=== PATIENT | male | born 1940 | race Caucasian/White ===

== ENCOUNTER 2017-09-26 09:13 | Emergency (ER) | payer BC, MEDICARE ==
[~2017-09-26] VITALS: Ht 182.9 cm; Wt 99.0 kg
[2017-09-26 09:30] VITALS: Ht 182.9 cm; Wt 99.0 kg
[2017-09-26] MEDS ORDERED: HYDROCODONE/ACETAMIN 5/325MG TAB PO STA (10:05)
[2017-09-26] MEDS ORDERED: ASPI81TA28 PO (10:33)
[2017-09-26] MEDS ORDERED: LISI40TA PO (10:33)
[2017-09-26] MEDS ORDERED: OMEP40CA41 PO (10:33)
[2017-09-26] MEDS ORDERED: CLOP1TAB15 PO (10:33)
[2017-09-26] MEDS ORDERED: METO25TA56 PO (10:33)
[2017-09-26] MEDS ORDERED: SIMV40TA2 PO (10:33)
[2017-09-26 10:48] LABS: BASO % 0.4 %; BASO ABS # 0.03 K/uL (0-0.2); EOS % 3.7 %; EOS ABS # 0.25 K/uL (0-0.5); HEMOGLOBIN 16.1 g/dL (14.0-18.0); IG# 0.01 K/uL (0.00-0.02); LYMPH % 14.1 %; LYMPH ABS # 0.96 K/uL (1.2-3.4); MEAN CELL VOLUME 85.3 fL (80-100); MEAN CORPUSCULAR HEMOGLOBIN 29.9 pg (25-34); MEAN PLATELET VOLUME 10.3 fL (7.4-10.4); MONO % 8.7 %; MONO ABS # 0.59 K/uL (0.11-0.59); NEUT ABS # 4.97 K/uL (1.4-6.5); PLATELET COUNT 178 K/uL (130-400); RED CELL DISTRIBUTION WIDTH SD 43.8 fL (36.4-46.3); WHITE BLOOD COUNT 6.81 K/uL (4.8-10.8)
--- NOTE | 2017-09-26 10:54 | DIAGNOSTIC IMAGING REPORT ---
CT OF THE CERVICAL SPINE CLINICAL HISTORY: Severe neck pain COMPARISON STUDY: No previous studies for comparison. CT DOSE: 500.21 mGycm TECHNIQUE: CT scan of the cervical spine was performed from the skull base to the thoracic inlet. Images are reviewed in the axial, sagittal, and coronal planes. IV contrast was not administered for this examination. A dose lowering technique was utilized adhering to the principles of ALARA. FINDINGS: The visualized portions of the lung apices reveal no evidence of pneumothorax. The prevertebral soft tissues are normal. No fractures or traumatic subluxations are visualized. There are moderate multilevel degenerative changes. 2.9 mm of retrolisthesis of C5 on C6 is felt to be arthritic. There is multilevel foraminal narrowing due to uncinate spurring. If there is clinical concern over the presence of cord pathology, an MRI would be recommended in follow-up IMPRESSION: 1. Moderate multilevel degenerative changes 2. No acute fractures or traumatic subluxations identified Electronically signed by: Travon Lindsey M.D. 09/26/2017 10:52 AM Dictated Date/Time: 09/26/2017 10:50 AM
[2017-09-26 11:04] LABS: CALCIUM 9.1 mg/dl (8.5-10.1); CREATININE 1.13 mg/dl (0.60-1.40); POTASSIUM 4.3 mmol/L (3.5-5.1)
--- NOTE | 2017-09-26 14:09 | DIAGNOSTIC IMAGING REPORT ---
MRI OF THE CERVICAL SPINE WITHOUT IV CONTRAST CLINICAL HISTORY: Left-sided neck pain. Fall one month ago. COMPARISON STUDY: CT scan of the cervical spine dated 09/26/2017. TECHNIQUE: MRI of the cervical spine is performed utilizing various T1 and T2-weighted sequences in the axial and sagittal planes. IV contrast was not administered for this examination. The examination is modestly compromised by motion artifact. FINDINGS: Cervical spine: Vertebral body height is maintained throughout the cervical spine. There is minimal anterolisthesis at C3-C4 and minimal retrolisthesis at C4-C5 and C5-C6. There is straightening of the cervical lordosis with mild reversal centered at C4-C5. The atlantodental articulation appears maintained noting productive degenerative change. Anterior osteophytes are seen throughout. Marrow signal intensity is heterogeneous. There is no MRI evidence of acute fracture. Advanced multilevel degenerative endplate change is noted. There is mild endplate edema seen from C4-C5 through C5-C6. The spinous processes appear intact. No destructive bony lesion is suggested. Intervertebral discs: Advanced degenerative disc desiccation is seen throughout the cervical spine. Loss of height is severe at C4-C5, C5-C6, and C6-C7. Loss of height is moderate at the remaining cervical levels. Spinal cord: The cervical spinal cord is normal in morphology and signal intensity. C2-C3: A posterior disc osteophyte complex effaces the ventral subarachnoid space. Uncovertebral and facet arthropathy cause moderate right and mild left neural foraminal stenosis. C3-C4: A posterior disc osteophyte complex effaces the ventral cord. Uncovertebral and facet arthropathy cause severe bilateral neural foraminal stenosis. C4-C5: A posterior disc osteophyte complex effaces the ventral cord. Uncovertebral and facet arthropathy cause mild to moderate right and severe left neural foraminal stenosis. C5-C6: A posterior disc osteophyte complex effaces the ventral cord. The minimum AP canal diameter measures 7 mm. Uncovertebral and facet arthropathy cause severe left greater than right neural foraminal stenosis. C6-C7: A posterior disc osteophyte complex effaces the ventral subarachnoid space. Uncovertebral and facet arthropathy cause severe right greater than left neural foraminal stenosis. C7-T1: Facet arthropathy causes mild bilateral neural foraminal stenosis. Soft tissues: The prevertebral and paraspinous soft tissues are normal as imaged. There is no convincing MRI evidence of ligamentous injury. Brain parenchyma: The visualized brain parenchyma at the skull base is normal in appearance. IMPRESSION: 1. No acute abnormality is identified involving the cervical spine. 2. The cervical spinal cord is normal in morphology and signal intensity. 3. Advanced degenerative disc disease and cervical spondylosis as above. See discussion for detailed level by level analysis. Dictated: 09/26/2017 1:47 PM Transcribed: 09/26/2017 2:08 PM [email or web address]_Srinivas Electronically signed by: Shreyas Salgado M.D. 09/26/2017 2:18 PM Dictated Date/Time: 09/26/2017 1:47 PM
[2017-09-26] MEDS ORDERED: HYDR-5688 PO (16:04)
[2017-09-26] MEDS ORDERED: PRED20TA PO (16:04)
[2017-09-26 16:13] VITALS: BP 163/102; PULSE 63; TEMP 36.8; O2SAT 96
--- NOTE | 2017-09-26 17:57 | EMERGENCY ROOM VISIT NOTE ---
History Report prepared by Lili: Yue Raymond Under the Supervision of: Dr. Guzman Sanchez M.D. 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 He describes the pain as a 9/10 in severity and it is worse at night and when he moves. He notes he fell forward on his arms one month ago and "tweaked his shoulder." He also reports he was wood splitting one week ago and was "throwing the wood over his shoulder." He also states that he feels discomfort in the muscles in his left calf. The patient notes he has chronic numbness in his left fingers due to a right rotator cuff surgery. Pt denies LOC, headache, fevers, chills, diaphoresis , visual changes, chest pain, breathing difficulties, nausea, vomiting, abdominal pain, back pain, melena, hematochezia, urinary symptoms, numbness, weakness, lymphadenopathy, rash, or other complaints. 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 A total of ten systems were reviewed and were otherwise negative. Family History No pertinent family history Current/Historical Medications Scheduled Aspirin (Aspirin Ec), 81 MG PO DAILY Clopidogrel (Plavix), 75 MG PO DAILY Lisinopril (Zestril), 40 MG PO DAILY Metoprolol Tartrate (Lopressor) (Lopressor), 25 MG PO BID Omeprazole (Prilosec), 40 MG PO DAILY Prednisone (Prednisone), 20 MG PO DAILY Simvastatin (Zocor), 40 MG PO DAILY Scheduled PRN Hydrocodone/Acetaminophen 5MG/325MG ([place] 5MG/325MG), 1-2 TABS PO Q6H PRN for Pain Allergies Coded Allergies: Iodine (Unverified Allergy, Intermediate, HIVES, RASH, 09/26/17) Physical Exam Vital Signs Date Time Temp Pulse Resp B/P (MAP) Pulse Ox O2 Delivery O2 Flow Rate FiO2 09/26/17 16:13 36.8 63 20 163/102 96 09/26/17 15:19 63 20 163/102 96 Room Air 3/5/18 14:07 61 20 167/89 96 Room Air 09/26/17 13:00 79 20 160/80 99 Room Air 09/26/17 12:00 78 20 158/78 99 Room Air 09/26/17 10:49 59 20 148/88 95 Room Air 09/26/17 09:30 36.8 74 18 162/97 96 Physical Exam GENERAL: Awake, alert, uncomfortable-appearing, in no distress HENT: Normocephalic, atraumatic. Oropharynx unremarkable. EYES: Normal conjunctiva. Sclera non-icteric. NECK: Minimal neck tenderness, but ROM is very limited secondary to pain. RESPIRATORY: Clear to auscultation. No wheezes. CARDIAC: Normal rate. Normal rhythm. No murmurs. No rubs. Extremities warm and well perfused. Pulses equal. No JVD. GI: Soft, non-distended. No tenderness to palpation. No rebound or guarding. No masses. RECTAL: Deferred. MUSCULOSKELETAL: Atraumatic. Chest examination reveals no tenderness. The back is symmetrical on inspection without obvious abnormality. There is no CVA tenderness to palpation. No joint edema. LOWER EXTREMITIES: Calves are equal size bilaterally and non-tender. No edema. No discoloration. NEURO: Normal sensorium. No sensory or motor deficits noted, except for subjective numbness in the fourth and fifth digit in the left hand but this is chronic. SKIN: No rash or jaundice noted. Medical Decision & Procedures ER Provider Diagnostic Interpretation: Radiology results as stated below per my review and radiologist interpretation: CT OF THE CERVICAL SPINE CLINICAL HISTORY: Severe neck pain COMPARISON STUDY: No previous studies for comparison. CT DOSE: 500.21 mGycm TECHNIQUE: CT scan of the cervical spine was performed from the skull base to the thoracic inlet. Images are reviewed in the axial, sagittal, and coronal planes. IV contrast was not administered for this examination. A dose lowering technique was utilized adhering to the principles of ALARA. FINDINGS: The visualized portions of the lung apices reveal no evidence of pneumothorax. The prevertebral soft tissues are normal. No fractures or traumatic subluxations are visualized. There are moderate multilevel degenerative changes. 2.9 mm of retrolisthesis of C5 on C6 is felt to be arthritic. There is multilevel foraminal narrowing due to uncinate spurring. If there is clinical concern over the presence of cord pathology, an MRI would be recommended in follow-up IMPRESSION: 1. Moderate multilevel degenerative changes 2. No acute fractures or traumatic subluxations identified Electronically signed by: Travon Lindsey M.D. 09/26/2017 10:52 AM Dictated Date/Time: 09/26/2017 10:50 AM MRI OF THE CERVICAL SPINE WITHOUT IV CONTRAST CLINICAL HISTORY: Left-sided neck pain. Fall one month ago. COMPARISON STUDY: CT scan of the cervical spine dated 09/26/2017. TECHNIQUE: MRI of the cervical spine is performed utilizing various T1 and T2-weighted sequences in the axial and sagittal planes. IV contrast was not administered for this examination. The examination is modestly compromised by motion artifact. FINDINGS: Cervical spine: Vertebral body height is maintained throughout the cervical spine. There is minimal anterolisthesis at C3-C4 and minimal retrolisthesis at C4-C5 and C5-C6. There is straightening of the cervical lordosis with mild reversal centered at C4-C5. The atlantodental articulation appears maintained noting productive degenerative change. Anterior osteophytes are seen throughout. Marrow signal intensity is heterogeneous. There is no MRI evidence of acute fracture. Advanced multilevel degenerative endplate change is noted. There is mild endplate edema seen from C4-C5 through C5-C6. The spinous processes appear intact. No destructive bony lesion is suggested. Intervertebral discs: Advanced degenerative disc desiccation is seen throughout the cervical spine. Loss of height is severe at C4-C5, C5-C6, and C6-C7. Loss of height is moderate at the remaining cervical levels. Spinal cord: The cervical spinal cord is normal in morphology and signal intensity. C2-C3: A posterior disc osteophyte complex effaces the ventral subarachnoid space. Uncovertebral and facet arthropathy cause moderate right and mild left neural foraminal stenosis. C3-C4: A posterior disc osteophyte complex effaces the ventral cord. Uncovertebral and facet arthropathy cause severe bilateral neural foraminal stenosis. C4-C5: A posterior disc osteophyte complex effaces the ventral cord. Uncovertebral and facet arthropathy cause mild to moderate right and severe left neural foraminal stenosis. C5-C6: A posterior disc osteophyte complex effaces the ventral cord. The minimum AP canal diameter measures 7 mm. Uncovertebral and facet arthropathy cause severe left greater than right neural foraminal stenosis. C6-C7: A posterior disc osteophyte complex effaces the ventral subarachnoid space. Uncovertebral and facet arthropathy cause severe right greater than left neural foraminal stenosis. C7-T1: Facet arthropathy causes mild bilateral neural foraminal stenosis. Soft tissues: The prevertebral and paraspinous soft tissues are normal as imaged. There is no convincing MRI evidence of ligamentous injury. Brain parenchyma: The visualized brain parenchyma at the skull base is normal in appearance. IMPRESSION: 1. No acute abnormality is identified involving the cervical spine. 2. The cervical spinal cord is normal in morphology and signal intensity. 3. Advanced degenerative disc disease and cervical spondylosis as above. See discussion for detailed level by level analysis. Dictated: 09/26/2017 1:47 PM Transcribed: 09/26/2017 2:08 PM Lissett Electronically signed by: Shreyas Salgado M.D. 09/26/2017 2:18 PM Dictated Date/Time: 09/26/2017 1:47 PM Laboratory Results 09/26/17 10:35 Red Blood Count 5.39, Mean Corpuscular Volume 85.3, Mean Corpuscular Hemoglobin 29.9, Mean Corpuscular Hemoglobin Concent 35.0, Mean Platelet Volume 10.3, Neutrophils (%) (Auto) 73.0, Lymphocytes (%) (Auto) 14.1, Monocytes (%) (Auto) 8.7, Eosinophils (%) (Auto) 3.7, Basophils (%) (Auto) 0.4, Neutrophils # (Auto) 4.97, Lymphocytes # (Auto) 0.96, Monocytes # (Auto) 0.59, Eosinophils # (Auto) 0.25, Basophils # (Auto) 0.03 09/26/17 10:35 Test 09/26/17 10:35 White Blood Count 6.81 K/uL (4.8-10.8) Red Blood Count 5.39 M/uL (4.7-6.1) Hemoglobin 16.1 g/dL (14.0-18.0) Hematocrit 46.0 % (42-52) Mean Corpuscular Volume 85.3 fL (80-100) Mean Corpuscular Hemoglobin 29.9 pg (25-34) Mean Corpuscular Hemoglobin Concent 35.0 g/dl (32-36) Platelet Count 178 K/uL (130-400) Mean Platelet Volume 10.3 fL (7.4-10.4) Neutrophils (%) (Auto) 73.0 % Lymphocytes (%) (Auto) 14.1 % Monocytes (%) (Auto) 8.7 % Eosinophils (%) (Auto) 3.7 % Basophils (%) (Auto) 0.4 % Neutrophils # (Auto) 4.97 K/uL (1.4-6.5) Lymphocytes # (Auto) 0.96 K/uL (1.2-3.4) Monocytes # (Auto) 0.59 K/uL (0.11-0.59) Eosinophils # (Auto) 0.25 K/uL (0-0.5) Basophils # (Auto) 0.03 K/uL (0-0.2) RDW Standard Deviation 43.8 fL (36.4-46.3) RDW Coefficient of Variation 14.0 % (11.5-14.5) Immature Granulocyte % (Auto) 0.1 % Immature Granulocyte # (Auto) 0.01 K/uL (0.00-0.02) Erythrocyte Sedimentation Rate 17 mm/hr (0-14) Anion Gap 5.0 mmol/L (3-11) Est Creatinine Clear Calc Drug Dose 68.8 ml/min Estimated GFR () 73.3 Estimated GFR (Non- 63.2 BUN/Creatinine Ratio 18.3 (10-20) Calcium Level 9.1 mg/dl (8.5-10.1) C-Reactive Protein 1.53 mg/dl (0-0.29) Medications Administered Medications (Trade) Dose Ordered Sig/Danyelle Route Start Time Stop Time Status Last Admin Dose Admin Acetaminophen/ Hydrocodone Bitart ([place] 5/325 Tab) 1 tab NOW STAT PO 09/26/17 10:05 09/26/17 10:08 DC 09/26/17 10:25 1 TAB Prednisone (PredniSONE TAB) 20 mg NOW STAT PO 09/26/17 15:35 09/26/17 15:36 DC 09/26/17 15:39 20 MG ED Course 0959: The patient was evaluated in room C6. A complete history and physical exam was performed. 1005: Hydrocodone Bitart/Acetaminophen 1 tab PO 1535: Prednisone 20 mg PO 1145 I reevaluated the patient at this time. He appears content. 1513: Dr. Hernandez, a PA for DR. Hobbs, will see the patient in the office. 1610: I reevaluated the patient. Discussed results and discharge instructions: He verbalized understanding and agreement. The patient is ready for discharge. Medical Decision Triage Nursing notes reviewed. The patient's presentation and history were concerning for neck pain. Etiologies such as herniated disc, severe degenerative disc disease, ARTHRITIS, vascular, epidural abscess, osteomyelitis, fracture, aortic disease, metastatic disease, infection, gastrointestinal, as well as others were entertained. The patient was evaluated. He had reproducible pain. Limited range of motion. The patient was doing a lot of physical labor in the days prior to the pain starting. He was given an oral [place] and did feel better with this. This increased his range of motion. He underwent CT imaging and blood work. His blood work was rather unremarkable. CRP was minimally elevated. CT imaging shows significant degenerative changes in the mid cervical spine. Because of his symptoms and the elevated CRP and MRI was performed. This showed significant degenerative changes, disc disease, with some impingement on to the cord and neural foramina. There is no cord signal intensity abnormality. The patient had a normal extremity examination with regards to sensory and motor testing. He has some chronic left hand numbness which started a long time before this neck issue. He was given a dose of prednisone, 20 mg. He will be on prednisone for the next 4 days. I did discuss the risks and benefits. He will also be on as needed [place]. I did place a consult with [place] [facility]. The case was discussed. They will follow-up the patient in the office. He will call them tomorrow. If he has any worsening problems she will be back to the Emergency Room for reevaluation. By the evaluation outlined above other emergent etiologies such as those listed in the differential, as well as others, were deemed relatively unlikely. The patient was educated about the findings as listed above. All questions were answered and the patient was pleased with the treatment. Return instructions were outlined and the patient was discharged in stable condition. The patient was referred to orthopedic spine for follow-up for a recheck of the current condition. Medication Reconcilliation Current Medication List: was personally reviewed by me Blood Pressure Screening Patient's blood pressure: Elevated blood pressure Blood pressure disposition: Referred to PCP Consults Time Called: [phone] Consulting Physician: ARNOL Carlos for DR. Hobbs Returned Call: [phone] They will see the patient in the office. Impression Primary Impression: Neck pain on left side Additional Impression: Degenerative disc disease Scribe Attestation The scribe's documentation has been prepared under my direction and personally reviewed by me in its entirety. I confirm that the note above accurately reflects all work, treatment, procedures, and medical decision making performed by me. Departure Information Dispostion Home / Self-Care Prescriptions Hydrocodone/Acetaminophen 5MG/325MG ([place] 5MG/325MG) Tab 1-2 TABS PO Q6H Y for Pain, #15 TAB Prov: Guzman Sanchez MD 09/26/17 Prednisone (Prednisone) 20 Mg Tab 20 MG PO DAILY for 4 Days, #4 TAB Prov: Guzman Sanchez MD 09/26/17 Referrals Marques Khan D.O. (PCP) Forms HOME CARE DOCUMENTATION FORM, IMPORTANT VISIT INFORMATION, WORK / SCHOOL INSTRUCTIONS Patient Instructions My [facility] Additional Instructions DO NOT drive, drink alcohol, operate machinery, or perform dangerous activities today. You were given medications in the ER that can affect your ability to safely function or operate a vehicle. Prednisone 20mg: Once daily until the prescription is finished. It is best to take this earlier in the day as some patients note occasional difficulty falling asleep when taken in the late evening. Hydrocodone/acetaminophen 5/325mg: Take 1-2 pills every 6 hours as needed for pain. Avoid additional Acetaminophen/Tylenol, alcohol, operating machinery or dangerous equipment, working on ladders or roofs, DRIVING, or situations where being under the influence may be dangerous. It is recommended to use a stool softener such as Colace, 100mg twice daily while taking this medication to avoid constipation. Rest and avoid heavy lifting until your symptoms resolve and then gradually return to full activity. A good rule of thumb is if it hurts your back to perform a certain activity, then it should be avoided until you are healthy again. A heating pad, warm compresses, or a hot shower may help with tight muscles and can be done several times a day as needed. Continue current medications. Return to the ER immediately for any numbness, tingling, severe pain, loss of control of your bowels or bladder, inability to walk, or as needed. Follow up with Dr. Hobbs's office tomorrow. The number is listed below. Problem Qualifiers Additional Impression: Degenerative disc disease Spinal region: unspecified cervical region Qualified Codes: M50.30 - Other cervical disc degeneration, unspecified cervical region
== END 2017-09-26 16:14 | disposition home or self-care (01) ==
LOC: C.EDB 09:15 → C.EDC 16:14
DX: M50.30 Other cervical disc degeneration, unspecified cervical region (principal); R20.0 Anesthesia of skin; Z79.02 Long term (current) use of antithrombotics/antiplatelets; Z79.82 Long term (current) use of aspirin; Z79.899 Other long term (current) drug therapy; Z88.8 Allergy status to other drugs, medicaments and biological substances

== ENCOUNTER 2019-10-02 02:16 | Observation (INO) ==
[2019-10-02] MEDS ORDERED: fentaNYL citrate 100 MCG/2 ML VIAL IV STA (02:35)
[2019-10-02 03:04] LABS: Basophils # (auto) 0.02 K/uL (0-0.2); Basophils % (auto) 0.3 %; Eosinophils # (auto) 0.24 K/uL (0-0.5); Eosinophils % (auto) 3.4 %; Hematocrit (blood only) 48.7 % (42-52); Hemoglobin 16.4 g/dL (14.0-18.0); Immature Granulocytes # (auto) 0.01 K/uL (0.00-0.02); Immature Granulocytes % (auto) 0.1 %; Lymphocytes # (auto) 0.77 K/uL (1.2-3.4); Mean Corpuscular Hemoglobin 28.7 pg (25-34); Mean Corpuscular Hgb Conc 33.7 g/dL (32-36); Mean Corpuscular Volume 85.1 fL (80-100); Mean Platelet Volume 10.6 fL (7.4-10.4); Monocytes % (auto) 7.2 %; Neutrophils # (auto) 5.44 K/uL (1.4-6.5); Platelet Count 171 K/uL (130-400); RDW Standard Deviation 43.7 fL (36.4-46.3); Red Blood Count 5.72 M/uL (4.7-6.1); White Blood Count 6.98 K/uL (4.8-10.8)
[2019-10-02 03:21] LABS: Alanine Aminotransferase 20 U/L (12-78); Albumin Level 3.7 gm/dl (3.4-5.0); Aspartate Aminotransferase 17 U/L (15-37); BUN Creatinine Ratio 21.8 (10-20); Bilirubin Direct 0.1 mg/dl (0-0.2); Blood Urea Nitrogen 29 mg/dl (7-18); Calcium 9.3 mg/dl (8.5-10.1); Carbon Dioxide 26 mmol/L (21-32); Chloride 106 mmol/L (98-107); Creatinine Clr Calc Pharmacy 50.7 ml/min; Est GFR (African American) 58.8; Est GFR (Non-African American) 50.7; Glucose 142 mg/dl (70-99); Lipase 74 U/L (73-393); Potassium 4.2 mmol/L (3.5-5.1); Sodium 137 mmol/L (136-145)
[2019-10-02 03:26] LABS: Alkaline Phosphatase 87 U/L (45-117); Bilirubin,Total 0.5 mg/dl (0.2-1); Total Protein 7.5 gm/dl (6.4-8.2); Troponin I < 0.015 ng/ml (0-0.045)
[2019-10-02 03:32] LABS: Appearance Urine Clear (Clear); Bilirubin Urine Negative (Negative); Blood Urine Negative (Negative); Color Urine Yellow; Glucose Urine UA Negative (Negative); Ketones Urine Negative (Negative); Leukocyte Esterase Urine Negative (Negative); Nitrite Urine Negative (Negative); Protein Urine Negative (Negative); Specific Gravity Urine 1.026 (1.000-1.030); Urobilinogen Urine Negative (Negative)
[2019-10-02] MEDS ORDERED: ASPIRIN 81 MG CHEW PO STA (03:58)
--- NOTE | 2019-10-02 04:33 | History & Physical Report ---
Date of Service October 02, 2019 Assessment & Plan (1) Chest pain: 78-year-old male with history of coronary artery disease status post stents x2, hypertension presenting with right-sided chest pain that occurred after dinner. Troponin x1 = negative, EKG with no acute ischemic saavedra es. Patient presently without chest pain. Differential to include ACS, most likely GI source Observation to medical floor with telemetry Trend troponin every 8 hours x3 sets GI cocktail Nitroglycerin and morphine as needed for chest pain Continue home cardiac medications, aspirin, simvastatin, metoprolol, lisinopril Present on Admission?: Yes (2) CAD (coronary artery disease): Patient with CAD status post stent. He follows with in [place]. Request records from outpatient visit Continue aspirin, simvastatin, metoprolol, lisinopril Chest pain work-up as above Present on Admission?: Yes (3) Hypertension: Blood pressure mildly elevated at 166/87 Continue metoprolol and lisinopril Continue to monitor Present on Admission?: Yes (4) Arrhythmia: Patient reports that during a recent pacer interrogation he was told that his heart had episodes of "beating fast". They think that maybe he has atrial fibrillation or "something like it". Request records from Dr. Medeiros's office Continue metoprolol 25 mg p.o. twice daily Continue apixaban 5 mg p.o. 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 Stable. Continue Flomax 0.4 mg daily Present on Admission?: Yes (6) GERD (gastroesophageal reflux disease): Chronic. Suspect GERD contributing to right-sided chest discomfort GI cocktail Continue omeprazole 40 mg p.o. daily FENHep-Lock, monitor electrolytes and replete as needed, heart healthy diet as tolerated Prophylaxiscontinue apixaban and omeprazole at home doses [place] per discussion with patient, at bedside Dispositionobservation to medical floor telemetry Present on Admission?: Yes History of Present Illness Chief Complaint: Chest pain Primary Care Provider: Marques Khan Stew Baker is a pleasant 78-year-old male with history of CAD status post stent placement x2 (2002 2016), newly diagnosed atrial arrhythmia (? A. fib), hypertension, BPH presenting with chest pain. Patient reports that he had acute onset of right-sided chest discomfort which occurred after dinner last evening. The pain comes in waves and is fairly severe at its max, 10/10 then subsides to /10. He took a Tums at home with minimal relief. He denies shortness of breath, palpitations, diaphoresis, nausea. He does report frequent eructation with a bad taste in the back of his throat. No additional complaints at this time. At baseline the patient reports he is active and independent at home. He denies exertional chest pain or dyspnea. He follows with Dr. Medeiros in [place]. Uncertain when his last stress test took place. ER course: Aspirin, fentanyl Allergies Allergy/AdvReac Type Severity Reaction Status Date / Time iodine Allergy Intermediate HIVES, RASH Unverified 07/03/19 10:27 Home Medications Home Medications Medication Instructions Recorded Confirmed Type apixaban [Eliquis] 5 mg PO BID 10/02/19 10/02/19 History aspirin 81 mg PO DAILY 10/02/19 10/02/19 History fluticasone propionate 1 spray INTRANASAL DAILY PRN 10/02/19 10/02/19 History lisinopril 40 mg PO DAILY 10/02/19 10/02/19 History metoprolol tartrate 25 mg PO BID 10/02/19 10/02/19 History omeprazole 40 mg PO DAILY 10/02/19 10/02/19 History simvastatin 40 mg PO DAILY 10/02/19 10/02/19 History tamsulosin 0.4 mg PO DAILY 10/02/19 10/02/19 History Past Med/Surg History Medical History (Updated 10/02/19 @ 05:20 by Yasmin Celaya DO) Arrhythmia Arthritis (Acute) Benign prostatic hyperplasia with urinary obstruction (Acute) CAD (coronary artery disease) Stent x 2 - 2002, 2016 GERD (gastroesophageal reflux disease) Hypertension Pacemaker Surgical History (Updated 10/02/19 @ 05:12 by Yasmin Celaya DO) History of aortic aneurysm repair 2000 History of permanent cardiac pacemaker placement Family History (Updated 10/02/19 @ 02:37 by Philip Young) Other No significant family history Social History (Updated 10/02/19 @ 05:12 by Yasmin Celaya DO) Preferred Language: Egyptian Feels Safe at Home: Yes Smoking Status: Never smoker Hx Alcohol Use: No Hx Substance Use: No Review of Systems Review of Systems: All systems reviewed & are unremarkable except as noted in HPI & below He denies fever/chills/shortness of breath/cough/abdominal pain/nausea/vomiting/diarrhea/constipation Physical Exam Physical Exam: General: patient resting comfortably, NAD, non-toxic in appearance, AA&O x 4 Skin: warm, dry, intact, no rashes or lesions, well-healed sternotomy scar HEENT: NC/AT, PERRL, EOMI, anicteric sclera, conjunctiva without injection, external ear normal to inspection and nontender, nares patent, moist mucus membranes, dentition intact, no oropharyngeal lesions, neck supple, trachea midline, no LAD, no thyromegaly, no JVD Heart: +S1/S2, regular, no m/r/g, no reproducible chest wall pain or epigastric discomfort on palpation Lungs: equal air entry bilaterally, no rales/rhonchi/wheezes Abd: +BS, soft, NT/ND, no masses/organomegaly/ascites Ext: warm, 2+ pulses in UE/LE bilaterally, no clubbing/cyanosis or edema Neuro: nonfocal, patient AA&O x 4, speech intact, no facial droop, moving all extremities on command with equal strength 5/5 Results & Data Vital Signs (Past 12 Hours) Vital Signs Temp Pulse Pulse Resp BP BP Pulse Ox 10/02/19 04:17 82 22 166/87 H 93 10/02/19 02:21 36.6 C 82 22 138/94 93 Laboratory Results Lab Results 10/02/19 10/02/19 10/02/19 Range/Units 02:55 02:55 03:20 WBC 6.98 (4.8-10.8) K/uL RBC 5.72 (4.7-6.1) M/uL Hgb 16.4 (14.0-18.0) g/dL Hct 48.7 (42-52) % MCV 85.1 (80-100) fL MCH 28.7 (25-34) pg MCHC 33.7 (32-36) g/dL RDW Std Deviation 43.7 (36.4-46.3) fL RDW Coeff of [place] 14.0 (11.5-14.5) % Plt Count 171 (130-400) K/uL MPV 10.6 H (7.4-10.4) fL Immature Gran % (Auto) 0.1 % Neut % (Auto) 78.0 % Lymph % (Auto) 11.0 % [place] % (Auto) 7.2 % Eos % (Auto) 3.4 % Baso % (Auto) 0.3 % Immature Gran # (Auto) 0.01 (0.00-0.02) K/uL Neut # (Auto) 5.44 (1.4-6.5) K/uL Lymph # (Auto) 0.77 L (1.2-3.4) K/uL [place] # (Auto) 0.50 (0.11-0.59) K/uL Eos # (Auto) 0.24 (0-0.5) K/uL Baso # (Auto) 0.02 (0-0.2) K/uL Sodium 137 (136-145) mmol/L Potassium 4.2 (3.5-5.1) mmol/L Chloride 106 (98-107) mmol/L Carbon Dioxide 26 (21-32) mmol/L Anion Gap 5.0 (3-11) BUN 29 H (7-18) mg/dl Creatinine 1.34 (0.6-1.4) mg/dl Est Cr Clr Drug Dosing 50.7 ml/min Est GFR ( Amer) 58.8 Est GFR (Non-Af Amer) 50.7 BUN/Creatinine Ratio 21.8 H (10-20) Glucose 142 H (70-99) mg/dl Calcium 9.3 (8.5-10.1) mg/dl Magnesium 2.0 (1.8-2.4) mg/dl Total Bilirubin 0.5 (0.2-1) mg/dl Direct Bilirubin 0.1 (0-0.2) mg/dl AST 17 (15-37) U/L ALT 20 (12-78) U/L Alkaline Phosphatase 87 (45-117) U/L Troponin I < 0.015 (0-0.045) ng/ml Total Protein 7.5 (6.4-8.2) gm/dl Albumin 3.7 (3.4-5.0) gm/dl Lipase 74 (73-393) U/L Urine Color Yellow Urine Appearance Clear (Clear) Urine pH 6.0 (4.5-7.5) Ur Specific [place] 1.026 (1.000-1.030) Urine Protein Negative (Negative) Urine Glucose (UA) Negative (Negative) Urine Ketones Negative (Negative) Urine Blood Negative (Negative) Urine Nitrite Negative (Negative) Urine Bilirubin Negative (Negative) Urine Urobilinogen Negative (Negative) Ur Leukocyte Esterase Negative (Negative) Diagnostic Findings Gallbladder ultrasoundPer stat read: No evidence of gallstones or biliary dilatation. Slightly echogenic liver. A subcentimeter echogenic focus in the right kidney, possible angiomyolipoma ECG Additional Comments: EKG shows AV dual paced rhythm Code Status & VTE Plan Code Status Full code PG Care Time/CCT Total # of Minutes Spent Total Time Spent with Patient: Total time spent is greater than 50% in coordination of care (as documented) at patient's floor/unit and/or counseling patient: Coding Level of Care Code 19451 OBS Care - Level 3 Diagnoses Chest pain R07.9 Chest pain type: unspecified CAD (coronary artery disease) I25.10 Coronary Disease-Associated Artery/Lesion type: [place] artery [place] vs. transplanted heart: [place] heart Associated angina: angina presence unspecified Hypertension I10 Hypertension type: essential hypertension Arrhythmia I49.9 Arrhythmia type: unspecified cardiac arrhythmia Benign prostatic hyperplasia with urinary obstruction N40.1; N13.8 GERD (gastroesophageal reflux disease) K21.9 Esophagitis presence: esophagitis presence not specified (1) Chest pain Chest pain type: unspecified Qualified Code(s): R07.9 - Chest pain, unspecified (2) CAD (coronary artery disease) Coronary Disease-Associated Artery/Lesion type: [place] artery [place] vs. transplanted heart: [place] heart Associated angina: angina presence unspecified Qualified Code(s): I25.10 - Atherosclerotic heart disease of [place] coronary artery without angina pectoris (3) Hypertension Hypertension type: essential hypertension Qualified Code(s): I10 - Essential (primary) hypertension (4) Arrhythmia Arrhythmia type: unspecified cardiac arrhythmia Qualified Code(s): I49.9 - Cardiac arrhythmia, unspecified (5) GERD (gastroesophageal reflux disease) Esophagitis presence: esophagitis presence not specified Qualified Code(s): K21.9 - Gastro-esophageal reflux disease without esophagitis
--- NOTE | 2019-10-02 05:25 | Emergency Department Note ---
Entered by Philip Young acting as a scribe for Raudel Melton MD ED Provider Note Name: Stew Baker Age: 78 Arrives Via: Walk in Informant: Patient CC: Chest pain HPI: The patient is a 78 year old male who presents to the emergency department with complaints of constant right-sided chest pain beginning yesterday at 1700. The patient states that he was feeling well earlier in the day. He notes that he developed chest pain around 1730, and he notes that his pain felt like acid reflux. He reports that he took Tums with no relief of his symptoms. He denies any abdominal pain. The patient states that he has a history of an aneurysm re pair and he notes that he has a pacemaker. He notes that he is on Eliquis. ROS: See above HPI for pertinent positives & negatives. A total of 10 systems reviewed and were otherwise negative. Past Medical History: None Past Surgical History: Pacemaker in place Family History: None Social History: , never smoker Home Medications: Eliquis Allergies: Iodine Physical: Vitals: BP 138/94, Pulse 82, Resp 22, Temp 97.9 F, O2 Sat 93 Exam: GENERAL: Patient is uncomfortable appearing and in mild distress. EYES: No scleral icterus, unremarkable pupils. ENT: Mucous membranes moist, no nasal congestion. NECK: No masses appreciated, no meningismus, trachea is midline. RESPIRATORY: No dyspnea. Clear to auscultation and equal bilaterally. No wheeze, no rhonchi. CARDIOVASCULAR: Regular rate and rhythm. No murmurs, rubs, gallops appreciated. GASTROINTESTINAL: Abdomen soft, non-tender, no peritonitis. Bowel sounds positive. No masses appreciated. BACK: No midline tenderness, no CVA tenderness EXTREMITIES: Normal motion all extremities, no cyanosis, no edema. NEUROLOGIC: Alert and oriented, no acute motor or sensory deficits, no focal weakness, cranial nerves grossly intact. SKIN: No rash, no jaundice, slightly diaphoretic. ED Course: Prior Medical Record, Triage/Nursing Notes, Medications, Allergies reviewed by Me 0228: The patient was evaluated in room C10. A complete history and physical exam was performed. 0307: I rechecked the patient. He is feeling better with pain medication. 0358: I reevaluated and updated the patient. He states that he felt fine, but he notes that he had an episode of crushing substernal chest pain a few minutes ago. He reports that his pain went away before I was able to get to the room. 0415: Upon reevaluation, the patient is stable. I discussed the findings and the treatment plan with the patient. He expresses agreement and understanding. I spoke with Dr. Celaya of the [facility] Hospitalist Service. The patient will be evaluated for further management. Vital Signs: reviewed and remarkable for wnl Labs: Reviewed and remarkable for wnl, normal trop Interventions: saline lock, fentanyl 50mcg IV, asa 324mg PO Imaging: CHEST X-RAY: X ray results are stated below per my interpretation: Chest: 1 view: No infiltrate, no effusion, normal cardiac border. US RUQ: No evidence of gallstones or biliary dilatation. Slightly echogenic liver. A subcentimeter echogenic focus in the right kidney, possible angiomyolipoma. Radiologist: Navya Allison MD. EKG: Per My Interpretation: Indication Chest Pain: AV Paced 80 bpm, qtc 546. No Ectopy. No Ischemia. No previous for comparison Consults: 0415: I reviewed the patient's case with Dr. Celaya - Hospitalist, [facility]. She will evaluate the patient for further management. Blood pressure: Elevated - Will be monitored by hospitalist. Disposition: Hospitalization Continuous Cardiac Monitoring: An order was placed for continuous cardiac monitoring. The monitor shows a rate of 80 with Paced. Differential: Cholecystitis, Gallbladder disfunction, Hepatic Disfunction, Gastritis/PUD, Pancreatitis, ACS, Aortic Pathology, amongst other pathologies entertained. Medical Decision Making: Pleasant 78 yr old male with history of aortic repair and pacemaker but denies known CAD arrives with acute right lower substernal chest pain. Intermittent and waxing/waning. He was quite uncomfortable on arrival and resolved with fen tanyl. Location concerning for GB disease thus US done which was unremarkable. Labs, cxr, and EKG unremarkable. He noted episode of chest pain on way back from US but already resolved. Given history will treat with ASA and plan cardiac rule out here in hospital. He has no active pain and symptoms seem unlikely dissection given this and fact CXR looking OK. Already on eliquis thus PE unlikely as well. Hospitalist to evaluate further. Impression: Substernal chest pain Raudel Melton MD The scribe's documentation has been prepared under my direction and personally reviewed by me in its entirety. I confirm that the note above accurately reflects all work, treatment, procedures, and medical decision making performed by me. Impression & Plan Substernal chest pain Past Med/Surg History Medical History (Updated 10/02/19 @ 05:20 by Yasmin Celaya DO) Arrhythmia Arthritis (Acute) Benign prostatic hyperplasia with urinary obstruction (Acute) CAD (coronary artery disease) Stent x 2 - 2016 GERD (gastroesophageal reflux disease) Hypertension Pacemaker Surgical History (Updated 10/02/19 @ 05:12 by Yasmin Celaya DO) History of aortic aneurysm repair 2000 History of permanent cardiac pacemaker placement Family History (Updated 10/02/19 @ 02:37 by Philip Young) Other No significant family history Social History (Updated 10/02/19 @ 05:12 by Yasmin Celaya DO) Preferred Language: Azeri Feels Safe at Home: Yes Smoking Status: Never smoker Hx Alcohol Use: No Hx Substance Use: No Results & Data Vital Signs Vital Signs - 24 hr 10/02/19 02:21 10/02/19 04:17 Temperature 36.6 C Temperature Source Oral Pulse Rate 82 Pulse Rate [Finger] 82 Pulse Rhythm Regular Pulse Strength Normal Respiratory Rate 22 22 Respiratory Effort / Characteristics Non-Labored Spontaneous Respiratory Depth Normal Respiratory Pattern Regular Blood Pressure 138/94 Blood Pressure [Right Arm] 166/87 H Blood Pressure Mean 108 Blood Pressure Mean [Right Arm] 113 Blood Pressure Position Sitting Pulse Oximetry 93 93 Oxygen Delivery Method Room Air Room Air Sepsis Recent Fever Within 48 Hours No Sepsis Action Taken by Nursing No Action Required Laboratory Data Result diagrams: 10/02/19 02:55 10/02/19 02:55 Lab Results 10/02/19 10/02/19 10/02/19 Range/Units 02:55 02:55 03:20 WBC 6.98 (4.8-10.8) K/uL RBC 5.72 (4.7-6.1) M/uL Hgb 16.4 (14.0-18.0) g/dL Hct 48.7 (42-52) % MCV 85.1 (80-100) fL MCH 28.7 (25-34) pg MCHC 33.7 (32-36) g/dL RDW Std Deviation 43.7 (36.4-46.3) fL RDW Coeff of [place] 14.0 (11.5-14.5) % Plt Count 171 (130-400) K/uL MPV 10.6 H (7.4-10.4) fL Immature Gran % (Auto) 0.1 % Neut % (Auto) 78.0 % Lymph % (Auto) 11.0 % [place] % (Auto) 7.2 % Eos % (Auto) 3.4 % Baso % (Auto) 0.3 % Immature Gran # (Auto) 0.01 (0.00-0.02) K/uL Neut # (Auto) 5.44 (1.4-6.5) K/uL Lymph # (Auto) 0.77 L (1.2-3.4) K/uL [place] # (Auto) 0.50 (0.11-0.59) K/uL Eos # (Auto) 0.24 (0-0.5) K/uL Baso # (Auto) 0.02 (0-0.2) K/uL Sodium 137 (136-145) mmol/L Potassium 4.2 (3.5-5.1) mmol/L Chloride 106 (98-107) mmol/L Carbon Dioxide 26 (21-32) mmol/L Anion Gap 5.0 (3-11) BUN 29 H (7-18) mg/dl Creatinine 1.34 (0.6-1.4) mg/dl Est Cr Clr Drug Dosing 50.7 ml/min Est GFR ( Amer) 58.8 Est GFR (Non-Af Amer) 50.7 BUN/Creatinine Ratio 21.8 H (10-20) Glucose 142 H (70-99) mg/dl Calcium 9.3 (8.5-10.1) mg/dl Magnesium 2.0 (1.8-2.4) mg/dl Total Bilirubin 0.5 (0.2-1) mg/dl Direct Bilirubin 0.1 (0-0.2) mg/dl AST 17 (15-37) U/L ALT 20 (12-78) U/L Alkaline Phosphatase 87 (45-117) U/L Troponin I < 0.015 (0-0.045) ng/ml Total Protein 7.5 (6.4-8.2) gm/dl Albumin 3.7 (3.4-5.0) gm/dl Lipase 74 (73-393) U/L Urine Color Yellow Urine Appearance Clear (Clear) Urine pH 6.0 (4.5-7.5) Ur Specific [place] 1.026 (1.000-1.030) Urine Protein Negative (Negative) Urine Glucose (UA) Negative (Negative) Urine Ketones Negative (Negative) Urine Blood Negative (Negative) Urine Nitrite Negative (Negative) Urine Bilirubin Negative (Negative) Urine Urobilinogen Negative (Negative) Ur Leukocyte Esterase Negative (Negative) Administered Medications Discontinued Medications Aspirin (Aspirin Chew) 324 mg PO NOW STA Stop: 10/02/19 03:59 Last Admin: 10/02/19 04:12 Dose: 324 mg Documented by: [id number] Fentanyl Citrate (Fentanyl Citrate) 50 mcg IV NOW STA Stop: 10/02/19 02:36 Last Admin: 10/02/19 03:05 Dose: 50 mcg Documented by: [id number] Discharge Plan Visit Data *Final* Discharge Date/Time: 10/02/19 04:57 Chief Complaint: Chest Pain Stated Complaint: CHEST PAIN ED Provider: Raudel Melton Discharge Problem: Substernal chest pain Patient Disposition: Admitted As Inpatient Discharge Instructions Interventions: ED Discharge Assessment Last Done: 10/02/19 04:57 The scribe's documentation has been prepared under my direction and personally reviewed by me in its entirety. I confirm that the note above accurately reflects all work, treatment, procedures, and medical decision making performed by me.
[2019-10-02] MEDS ORDERED: NITROGLYCERIN SL 0.4 MG/TAB TAB SL PRN (05:37)
[2019-10-02] MEDS ORDERED: ACETAMINOPHEN 325 MG TAB PO PRN (05:37)
[2019-10-02] MEDS ORDERED: MoRPHine SULFATE 2 MG/ML CARP IV PRN (05:37)
[2019-10-02] MEDS ORDERED: ONDANSETRON INJ 2 MG/ML 2 ML VIAL IV PRN (05:37)
[2019-10-02] MEDS ORDERED: ALUMINUM/MAGNESIUM SUSP 18 ML, LIDOCAINE HCL VISCOUS 2% 6 ML, BARCODE IDENTIFIER 1 EA PO ONE (06:15)
--- NOTE | 2019-10-02 06:34 | XRay Report ---
XR chest 1V portable CLINICAL HISTORY: Atypical chest pain COMPARISON STUDY: 10/02/2019 FINDINGS: There are postsurgical changes of midline sternotomy. There is a left subclavian dual-chamb er central venous pacemaker. There is no failure. There is no focal pulmonary consolidation. There ar e no pleural effusions. There is basilar atelectasis/scarring. There are scattered calcified granulom as present. There are no significant pleural effusions.[ IMPRESSION: No active disease in the chest. ACT 112: Negative or not required by law. Electronically signed by: Travon Lindsey M.D. 10/02/2019 6:32 AM
--- NOTE | 2019-10-02 06:41 | Ultrasound Report ---
US gallbladder HISTORY: Pain. Nausea. epigastric pain COMPARISON: None. FINDINGS: Ultrasonic evaluation of the right upper quadrant shows the gallbladder to be normal. There are no sh adowing gallstones. Liver demonstrates fatty infiltration. Common bile duct measures 3 mm. Pancreas i s unremarkable. Right kidney is negative for hydronephrosis. IMPRESSION: Fatty infiltration of liver. Otherwise negative study. ACT 112: Negative or not required by law. The above report was generated using voice recognition software. It may contain grammatical, syntax or spelling errors. Electronically signed by: Jacek Hope M.D. 10/02/2019 6:39 AM
[2019-10-02] MEDS ORDERED: METOPROLOL TARTRATE 25 MG TAB PO SCH (09:00)
[2019-10-02] MEDS ORDERED: APIXABAN 5 MG TABLET PO SCH (09:00)
[2019-10-02] MEDS ORDERED: SIMVASTATIN 40 MG TAB PO SCH (09:00)
[2019-10-02] MEDS ORDERED: lisinopriL 40 MG TAB PO SCH (09:00)
[2019-10-02] MEDS ORDERED: ASPIRIN 81 MG ECTAB PO SCH (09:00)
[2019-10-02] MEDS ORDERED: TAMSULOSIN HCL 0.4 MG CAP PO SCH (09:00)
[2019-10-02] MEDS ORDERED: PANTOprazole 40 MG TAB PO SCH (09:00)
[2019-10-02 09:59] LABS: Estimated Average Glucose 131 mg/dl; Hemoglobin A1C 6.2 % (4.5-5.6)
--- NOTE | 2019-10-02 13:52 | Hospitalist Progress Note ---
Date of Service October 02, 2019 Assessment & Plan Admission and Anticipated Discharge Date Admission Date: October 02, 2019 Subjective Patient states he is feeling much better this morning after receiving GI cocktail. No further episodes of chest pain. States he did have some belching with sour taste and believes it may have been reflux related. His dinner was of eggs and sausage. Had previously been on omeprazole as an outpatient. Discussed repeating troponins to rule out cardiac cause. Patient unaware of last ECHO. Follows with Dr. Medeiros. Patient voices want for discharge today due to needing to be his 's ride for procedure in AM. Discussed waiting for serial labs and possible discharge this evening. Results & Data ([facility]) Vital Signs (Past 12 Hours) Vital Signs Temp Pulse Pulse Resp BP BP BP 10/02/19 11:00 36.5 C 80 18 147/92 H 10/02/19 07:16 36.5 C 80 20 130/86 10/02/19 05:23 36.4 C L 82 18 130/87 10/02/19 04:17 82 22 166/87 H 10/02/19 02:21 36.6 C 82 22 138/94 Pulse Ox 10/02/19 11:00 95 10/02/19 07:16 94 10/02/19 05:23 95 10/02/19 04:17 93 10/02/19 02:21 93 PG Care Time/CCT Total # of Minutes Spent Total Time Spent with Patient: Total time spent is greater than 50% in coordination of care (as documented) at patient's floor/unit and/or counseling patient: Coding
--- NOTE | 2019-10-02 14:59 | Electrocardiogram Report ---
Test Reason : Blood Pressure : / mmHG Vent. Rate : 080 BPM Atrial Rate : 080 BPM P-R Int : 182 ms QRS Dur : 154 ms QT Int : 474 ms P-R-T Axes : 047 007 078 degrees QTc Int : 546 ms AV dual-paced rhythm Biventricular pacemaker detected Abnormal ECG No previous ECGs available Confirmed by Lee Velasquez ([id number]) on 10/02/2019 2:58:39 PM Referred By: REFERRED SELF Confirmed By:Lee Velasquez
--- NOTE | 2019-10-02 16:56 | Cardiology Consultation ---
Date of Consultation October 02, 2019 Assessment & Plan (1) Chest pain: Given the severity of his symptoms with no ECG or enzyme changes, the relief after GI cocktail, and his current asymptomatic status, suspect gastroesophageal reflux with esophageal spasm as etiology for his chest pain. If his third set of enzymes is negative, reasonable for him to return home, since there is no evidence of an acute coronary syndrome. The role of stress testing is uncertain, since with known coronary artery disease he could have an abnormal study, but it would be difficult to describe any findings to his GI type symptoms last evening. Defer outpatient stress testing decision to his primary custodial manager, Dr. Baez. Case discussed with Camila Vickers. KIERA. (2) CAD (coronary artery disease): No evidence of active/ongoing myocardial ischemia currently. Further management as per Dr. Baez. (3) Hypertension: BP reasonably controlled. No change in his vasoactive regimen. (4) Biventricular cardiac pacemaker in situ: Appears to be functioning appropriately. (5) GERD (gastroesophageal reflux disease): Agree with increasing his antireflux regimen of pantoprazole from daily to twice daily. (6) H/O tachycardia-bradycardia syndrome: He is anticoagulated with apixaban, but he states suggest that his original rhythm may have been in SVT. No palpitations to implicate tacky dysrhythmia and his symptoms last evening. (7) History of aortic aneurysm repair: Relief of symptoms with GI cocktail and his current asymptomatic status way against any issues with his thoracic aneurysm repair. History of Present Illness Reason for Consultation: chest pain Requesting Physician: Lizbet Mccarthy MD Attending Physician: Lizbet Mccarthy MD History of Present Illness 78-year-old man with history of thoracic aneurysm repair, coronary artery disease (remote stenting), tachydysrhythmias (status post biventricular pacemaker), and hypertension, who was admitted overnight after an episode of chest pain. Details of his cardiac history are uncertain, he is followed by Dr. Baez and was previously followed near [place]. At recent baseline, he has been physically active with no symptoms and feeling well. Last evening, he ate sausage and eggs and noted reflux type symptoms with a distinct burning character and acid brash type posterior pharyngeal sensation. He took Tums with transient relief, but when the symptoms kept recurring and became more severe he presented to the emergency department. His pain was lower right anterior chest near the midline and epigastrium and nonradiating. No palpitations or other associated symptoms. He received a GI cocktail and noted immediate significant relief with no recurrence of his symptoms. At the time of my evaluation he was asymptomatic. Allergies Allergy/AdvReac Type Severity Reaction Status Date / Time iodine Allergy Intermediate HIVES, RASH Unverified 07/03/19 10:27 Home Medications Home Medications Medication Instructions Recorded Confirmed Type apixaban [Eliquis] 5 mg PO BID 10/02/19 10/02/19 History aspirin 81 mg PO DAILY 10/02/19 10/02/19 History fluticasone propionate 1 spray INTRANASAL DAILY PRN 10/02/19 10/02/19 History lisinopril 40 mg PO DAILY 10/02/19 10/02/19 History metoprolol tartrate 25 mg PO BID 10/02/19 10/02/19 History omeprazole 40 mg PO DAILY 10/02/19 10/02/19 History simvastatin 40 mg PO DAILY 10/02/19 10/02/19 History tamsulosin 0.4 mg PO DAILY 10/02/19 10/02/19 History Patient History Medical History Arrhythmia Arthritis (Acute) Benign prostatic hyperplasia with urinary obstruction (Acute) CAD (coronary artery disease) Stent x 2 - 2016 GERD (gastroesophageal reflux disease) Hypertension Pacemaker Surgical History History of aortic aneurysm repair 2000 History of permanent cardiac pacemaker placement Family History No significant family history Social History Preferred Language: Greek Communication Ability: Effective Dairy Grazer Required: No Beliefs That Will Affect Care: None Current Living Situation: Spouse Other Information That Helps Us Care for You: No Feels Safe at Home: Yes Safety Concerns: Feels Safe At This Time Smoking Status: Never smoker Do You Dip or Chew Tobacco: No ; Second Hand Exposure: No ; Tobacco Cessation Education Requested by Patient: No Hx Alcohol Use: No Hx Substance Use: No Review of Systems Constitutional: no fever, no chills, no fatigue, no weight loss and no weight gain Eyes: no problem reported Ear, Nose, Mouth, Throat: no problem reported Respiratory: no cough and no dyspnea Cardiovascular: as per Subjective / HPI Gastrointestinal: + heartburn (Does note intermittent symptoms of reflux after meals.); no change in stools Genitourinary: + difficulty urinating, + urinary frequency, + urinary hesitancy (Followed by Dr. Jones in urology.) and + urinary urgency Musculoskeletal: no myalgia Integumentary: no rash and no new lesions Neurologic: no falls and no syncope Psychiatric: no problem reported Hematologic / Lymphatic: no easy bleeding and no easy bruising Physical Exam Physical Exam: Elderly white male, normal habitus, in no distress. Afebrile. BP normotensive to mildly hypertensive. Pulse 80 and regular (paced). Respirations 18. Skin: No ecchymoses or generalized lesions. HEENT: Unremarkable. Neck: No jugular venous distention or carotid bruits. Lungs: Clear and equal breath sounds bilaterally. Cardiac: Regular rhythm with normal S1 and S2, no obvious murmur or gallop. Chest wall: Nontender. Abdomen: Soft and nontender. Extremities: No edema, pulses brisk. Neurologic: Normal affect, nonfocal. Results & Data ([facility]) Vital Signs (Past 12 Hours) Vital Signs Temp Pulse Resp BP BP Pulse Ox 10/02/19 15:05 98.1 F 80 18 143/93 H 93 10/02/19 11:00 97.7 F 80 18 147/92 H 95 10/02/19 07:16 97.7 F 80 20 130/86 94 10/02/19 05:23 97.5 F L 82 18 130/87 95 Laboratory Results Troponin negative x2 (third draw pending). Creatinine 1.34. Chest x-ray unremarkable. ECG showed AV dual paced rhythm at 80 bpm with biventricular pacemaker. No prior studies for comparison. PG Care Time/CCT Total # of Minutes Spent Total Time Spent with Patient: Total time spent is greater than 50% in coordination of care (as documented) at patient's floor/unit and/or counseling patient: Coding Level of Care Code 34865 Initial Inpt Care Lvl 3 Diagnoses Chest pain R07.9 Chest pain type: unspecified CAD (coronary artery disease) I25.10 Coronary Disease-Associated Artery/Lesion type: [place] artery [place] vs. transplanted heart: [place] heart Associated angina: angina presence unspecified Hypertension I10 Hypertension type: essential hypertension Biventricular cardiac pacemaker in situ Z95.0 GERD (gastroesophageal reflux disease) K21.9 Esophagitis presence: esophagitis presence not specified H/O tachycardia-bradycardia syndrome Z86.79 History of aortic aneurysm repair Z98.890; Z86.79 (1) Chest pain Chest pain type: unspecified Qualified Code(s): R07.9 - Chest pain, unspecified (2) CAD (coronary artery disease) Coronary Disease-Associated Artery/Lesion type: [place] artery [place] vs. transplanted heart: [place] heart Associated angina: angina presence unspecified Qualified Code(s): I25.10 - Atherosclerotic heart disease of [place] coronary artery without angina pectoris (3) Hypertension Hypertension type: essential hypertension Qualified Code(s): I10 - Essential (primary) hypertension (4) GERD (gastroesophageal reflux disease) Esophagitis presence: esophagitis presence not specified Qualified Code(s): K21.9 - Gastro-esophageal reflux disease without esophagitis
--- NOTE | 2019-10-02 17:04 | Discharge Summary ---
Date of Service October 02, 2019 Admission HPI Per Admitting Provider Stew Baker is a pleasant 78-year-old male with history of CAD status post stent placement x2 (2002 2016), newly diagnosed atrial arrhythmia (? A. fib), hypertension, BPH presenting with chest pain. Patient reports that he had acute onset of right-sided chest discomfort which occurred after dinner last evening. The pain comes in waves and is fairly severe at its max, 10/10 then subsides to 1/10. He took a Tums at home with minimal relief. He denies shortness of breath, palpitations, diaphoresis, nausea. He does report frequent eructation with a bad taste in the back of his throat. No additional complaints at this time. At baseline the patient reports he is active and independent at home. He denies exertional chest pain or dyspnea. He follows with Dr. Medeiros in [place]. Uncertain when his last stress test took place. ER course: Aspirin, fentanyl Admission Exam Per Admitting Provider General: patient resting comfortably, NAD, non-toxic in appearance, AA&O x 4 Skin: warm, dry, intact, no rashes or lesions, well-healed sternotomy scar HEENT: NC/AT, PERRL, EOMI, anicteric sclera, conjunctiva without injection, external ear normal to inspection and nontender, nares patent, moist mucus membranes, dentition intact, no oropharyngeal lesions, neck supple, trachea midline, no LAD, no thyromegaly, no JVD Heart: +S1/S2, regular, no m/r/g, no reproducible chest wall pain or epigastric discomfort on palpation Lungs: equal air entry bilaterally, no rales/rhonchi/wheezes Abd: +BS, soft, NT/ND, no masses/organomegaly/ascites Ext: warm, 2+ pulses in UE/LE bilaterally, no clubbing/cyanosis or edema Neuro: nonfocal, patient AA&O x 4, speech intact, no facial droop, moving all extremities on command with equal strength 5/5 Principal Diagnosis Atypical Chest Pain, Reflux Discharge Exam Constitutional WD/WN, vitals as above no acute distress Eyes PERRL, conjunctivae normal, anicteric sclerae ENMT external ear and nose normal, oropharynx normal Neck trachea midline, no thyromegaly Respiratory normal respiratory effort, lungs clear to auscultation Cardiovascular RRR, no murmur, no edema Gastrointestinal (Abdomen) normal bowel sounds, soft, nontender, no hepatosplenomegaly Musculoskeletal no cyanosis or clubbing, extremities motor strength 5/5 Skin no rashes, warm and dry Neurologic patellar DTR's 2+ bilat, sensation intact Psychiatric A+Ox3, euthymic affect Lymphatic no cervical or axillary lymphadenopathy Discharge Data Allergies Allergy/AdvReac Type Severity Reaction Status Date / Time iodine Allergy Intermediate HIVES, RASH Unverified 07/03/19 10:27 Consultations 10/02/19 03:58 ED Decision to Admit Stat 10/02/19 09:51 Consult Cardiology Routine Ordered Studies 10/02/19 02:35 US gallbladder Urgent CXR Hospital Course (1) Chest pain: 78-year-old male with history of coronary artery disease status post stents x2, hypertension presenting with right-sided chest pain that occurred after dinner. EKG with no acute ischemic changes. Relieved with GI cocktail. Troponin negative x3. Cardiology consulted -- given improvment and without recurrance of symptoms, patient felt comfortable for discharge. Recommended outpatient follow up with sheepskin pickler regarding stress testing, as patient has known hx CAD. Discontinued omeprazole and initiated and sent out on protonix 40mg BID Continued all other home medications -- ASA, simvastatin, metoprolol, lisinopril (2) CAD (coronary artery disease): Patient with CAD status post stent. Follow up with in [place]. Continued aspirin, simvastatin, metoprolol, lisinopril Chest pain work-up as above (3) Hypertension: Blood pressure stable, 143/93 Continued metoprolol and lisinopril (4) Arrhythmia: Patient reported that during a recent pacer interrogation he was told that his heart had episodes of "beating fast". Possible vs SVT Continued metoprolol, Eliquis (5) Benign prostatic hyperplasia with urinary obstruction: Chronic. Stable. Continued Flomax 0.4 mg daily (6) GERD (gastroesophageal reflux disease): Chronic. Suspected GERD contributed to right-sided chest discomfort following eating GI cocktail with resolution as above -- discharged on protonix 40mg BID Patient to follow up with cardiology outpatient this week about possible stress testing. Total Time Total Time Spent Total Time Spent (In Minutes): 60 Discharge Plan Discharge Items Patient Disposition: Home - Self-Care Reason For Visit: CHEST PAIN Discharge Diagnosis: Atypical Chest Pain, Reflux Condition on Discharge: Good Goals: You have been hospitalized for an acute medical problem. During your stay at [facility], we have made an effort to correct the problem that brought you to the hospital while keeping you as comfortable as possible. Medications were used to bring your condition under control and your discharge instructions will include directions for any medications you should take after leaving the hospital. Please make sure you see your Primary Care Provider as part of your follow up plan. Activity: Resume your previous activity Non-emergency contact: Primary Care Provider and Veterinary Epidemiologist Call non-emergency contact if: you have any medication questions and your symptoms worsen Follow-up/Referrals: Heber Baez [Other] Marques Khan [Primary Care Provider] - Diet: Heart Healthy Addtl Attending Provider Instructions: You have been hospitalized for chest pain symptoms. Given the resolution of symptoms with addition of a "GI cocktail" and negative labs indicating damage to heart tissue, your symptoms were likely related to reflux. You have been on protonix 40mg by mouth and have been sent a prescription to take this 40mg by mouth TWICE daily to see if this controls those symptoms. This will TAKE THE PLACE OF YOUR OMEPRAZOLE. Your A1c level (a lab test that checks for diabetes) was elevated at 6.2%. This technically is termed "pre-diabetes". You should monitor your diet and regular exercise is encouraged. You should follow up with your primary care provider to have this level checked again in 3 months. At that time, your doctor may want to initiate medication, such as metformin, to help keep this under control. As discussed, you should follow up with Dr. Baez in the next week to see about repeating a stress test, given it has been a while since your last one. As discussed with our cardiology team, it appears to be more related to reflux than your heart at this time. With that being said, if you experience any chest pain/tightness or shortness of breath, please return to the closest emergency department. Follow up with your primary care provider in the next 3-5 days. It has been a pleasure being a part of the medical team providing for you during your hospitalization. Take care! Pending Studies at Discharge: No Stand-Alone Forms: My [facility] Medications and DC Order Prescriptions: New pantoprazole 40 mg Tablet,Delayed Release (Dr/Ec) 40 mg PO BID 30 Days Qty: 60 RF: 1 Continued tamsulosin 0.4 mg capsule 0.4 mg PO DAILY RF: 0 metoprolol tartrate 25 mg tablet 25 mg PO BID RF: 0 simvastatin 40 mg tablet 40 mg PO DAILY RF: 0 lisinopril 40 mg tablet 40 mg PO DAILY RF: 0 fluticasone propionate 50 mcg/actuation spray,suspension 1 spray INTRANASAL DAILY PRN (Reason: Congestion) RF: 0 Eliquis 5 mg tablet 5 mg PO BID RF: 0 aspirin 81 mg Tablet,Delayed Release (Dr/Ec) 81 mg PO DAILY RF: 0 Discontinued omeprazole 40 mg capsule,delayed release(DR/EC) 40 mg PO DAILY RF: 0 Discharge Orders: Discharge Order (Routine); Ordered 10/02/19 Ordered By: Lizbet Mccarthy Admission Data Admit Date/Time: 10/02/19 04:33 Attending Provider: Lizbet Mccarthy Admit Provider: Ysamin Celaya Primary Care Provider: Marques Khan Other Providers: Donnell Gamble Other Interventions: Discharge Summary Assessment (RN) Last Done: 10/02/19 18:59 DC Date/Time DO NOT enter until pt leaves facility: 10/02/19 19:17 Supervising Physician Co-Signing Physician Notes PA Supervision Note: I personally saw and examined the patient. I verified all taylor points and agree with ARNOL Carroll with the following exceptions and/or additions: Pt feeling much better, no further pains since starting GI cocktail and PPI. Tele stable and troponin negative serially, seen by Cardiology and no further workup indicated. VSS NAD, AAOx3 RRR no mgr CTAB no wcr Abd +BS soft NT ND Ext no edema stable for dc to home for atypical chest pain now resolved Coding Level of Care Code Admit/DC Same Day >8hr Level 3 Diagnoses Chest pain R07.9 Chest pain type: unspecified CAD (coronary artery disease) I25.10 Associated angina: angina presence unspecified Coronary Disease-Associated Artery/Lesion type: [place] artery [place] vs. transplanted heart: [place] heart Hypertension I10 Hypertension type: essential hypertension Arrhythmia I49.9 Arrhythmia type: unspecified cardiac arrhythmia Benign prostatic hyperplasia with urinary obstruction N40.1; N13.8 GERD (gastroesophageal reflux disease) K21.9 Esophagitis presence: esophagitis presence not specified
== END 2019-10-02 19:17 | disposition home or self-care (01) ==
LOC: ED 02:16 → 2W 02:16 → SUATTDRO 04:33 → 2W 04:57

== ENCOUNTER 2022-12-27 07:21 | Observation (INO) ==
[2022-12-27] MEDS ORDERED: SODIUM CHLORIDE 0.9% 1000ML 1,000 ML IV SCH (07:45)
[2022-12-27] MEDS ORDERED: SODIUM CHLORIDE 0.9% 500 ML IV SCH (07:45)
[2022-12-27] MEDS ORDERED: ONDANSETRON INJ 2 MG/ML 2 ML VIAL IV STA (07:58)
--- NOTE | 2022-12-27 08:22 | XRay Report ---
XR chest 1V portable CLINICAL HISTORY: weakness TECHNIQUE: Single frontal radiograph of the chest was obtained. Comparison: Comparison is made to chest radiograph 10/02/2019 FINDINGS: Median sternotomy wires are unchanged. Dual lead pacemaker is seen. Cardiomegaly is noted. The aortic arch is calcified. The lungs are clear. No evidence of pleural effusion or pneumothorax. IMPRESSION: No acute chest disease. Cardiomegaly is noted. ACT 112: Negative or not required by law. Electronically signed by: Ganga Chen M.D. 12/27/2022 8:20 AM
--- NOTE | 2022-12-27 08:40 | Emergency Department Note ---
Impression & Plan Generalized weakness, Acute dehydration, Nausea & vomiting ED Provider Note INFORMANT: Patient and ED PROVIDER(S): Guzman Sanchez MD CHIEF COMPLAINT: Dehydration PLAN: Disposition: Admitted Condition: Good Outpatient prescription management: none Referral: None MEDICAL DECISION MAKING: Patient presented because of feeling dehydrated after vomiting and not eating we ll. The had similar symptoms 2 days prior. Patient had an IV established. Blood work was obtained. ECG was nonischemic with a paced rhythm present. Patient had cardiomegaly but no focal findings on chest x-ray. He had an unremarkable except for mild thrombocytopenia. Chemistry panel did reveal some mild dehydration. Slight elevation of total bilirubin. He has had this 1 time in the past. Patient underwent CT imaging of the abdomen and pelvis and this did not reveal any acute pathology. Patient was hydrated and treated with Zofran. He was monitored and felt better on reassessment. The patient was noted to have a mildly low O2 saturation on room air. He was comfortable and n ot complaining of any shortness of breath. The patient COVID testing was negative. He had an ambulatory trial ordered due to the weakness and an ambulatory pulse oximeter ordered due to the mildly low blood oxygen levels on monitoring. Patient was not put through the ambulatory trial as his pulse oximeter was in the high 80s when the nurses got him out of bed. He was placed on 2 L nasal cannula oxygen and did very well with this. Further management in the hospital will be necessary. Patient does not have oxygen at home. I did place an order for a CT angio of the chest. I did order premedication for the patient prior to CT imaging. Consultation was made with Dr. Feliberto Biswas of the [facility] service. Patient was evaluated in the ER for further management. 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 Triage Nursing notes reviewed and agree them. Vital Signs: reviewed and remarkable for hypoxia Prior /Outside records reviewed: Prior imaging reviewed. Patient has had IV contrast without difficulty in the past. Differential diagnosis: Viral syndrome infection, dehydration, metabolic abnormality, hypo/hyperglycemia, electrolyte disturbance, anemia, hypoxia, cardiac sources, intracerebral event, toxicologic, neurologic, as well as other pathologies. Diagnostics, as interpreted by me: ECG: Twelve-lead ECG reveals atrial sensed ventricular paced rhythm at [address] elevation or depression. Nonspecific ST Cardiac Monitoring: Cardiac monitoring ordered by me: The patient was placed on continuous cardiac monitoring and observed. It revealed a normal paced rhythm at 68 bpm. Medical decision rules: none Imaging studies: Chest x-ray. Findings: A chest x-ray was performed and revealed no pneumothorax, effusion, infiltrate, pulmonary edema, free air under the diaphragm, or wide mediastinum. Impression: No acute disease. HPI: The patient is a 82year old male who presents to the Emergency Room with complaints of dehydration. This started yesterday and is persisting.. The p atient also notes the following associated symptoms, feeling generally weak, nausea and vomiting x1, and worsening of his chronic low back pain. is present and helps with the history. She notes that the patient spent a lot of time in the heat and sun over the weekend. She notes she did as well 3 days ago and suffered nausea and vomiting that night. She felt that he was dehydrated. He was not eating much. She notes he does have a history of back pain and has received injections. He notes that injections and medications do not seem to help much. Pain does radiate down his legs. Overall the back pain has not changed significantly just seems somewhat worse since the vomiting. The patient has found no relieving factors. Current pain is rated as 10/10. Pt denies LOC, headache, fevers, chills, diaphoresis, visual changes, neck pain, chest pain, breathing difficulties,abdominal pain, melena, hematochezia, urinary symptoms, numbness, lymphadenopathy, rash, or other complaints. PAST MEDICAL HISTORY: See Below, chronic low back pain, CAD PAST SURGICAL HISTORY: See Below, aneurysm repair SOCIAL HISTORY: See Below, HOME MEDICATIONS: See Below ALLERGIES: See Below VITALS: See Below PHYSICAL EXAMINATION: GENERAL: Awake, alert, well-appearing, in no distress HENT: Normocephalic, atraumatic. Oropharynx with dry mucous membranes. EYES: Normal conjunctiva. Sclera non-icteric. NECK: Inspection normal. Non-tender. Supple. No nuchal rigidity. FROM. No masses. RESPIRATORY: Clear to auscultation. No wheezes. No rales. Normal respiratory effort. CARDIAC: Normal rate. Normal rhythm. No murmurs. No rubs. Extremities warm and well perfused. Pulses equal. No JVD. GI: Soft, non-distended. No tenderness to palpation. No rebound or guarding. No masses. RECTAL: Deferred. MUSCULOSKELETAL: Atraumatic. Chest examination reveals no tenderness. The back is symmetrical on inspection without obvious abnormality. There is no CVA tenderness to palpation. No joint edema. LOWER EXTREMITIES: Calves are equal size bilaterally and non-tender. No edema. No discoloration. NEURO: Normal sensorium. Generally weak but no focal sensory or motor deficits noted. SKIN: No rash or jaundice noted. Past Med/Surg History Medical History (Updated 12/27/22 @ 08:40 by Guzman Sanchez MD) Arrhythmia Arthritis Benign prostatic hyperplasia with urinary obstruction CAD (coronary artery disease) Stent x 2 - 2016 GERD (gastroesophageal reflux disease) Hypertension Pacemaker Surgical History History of aortic aneurysm repair 2000 History of permanent cardiac pacemaker placement Family History Other No significant family history Social History Smoking Status: Never smoker Second Hand Exposure: No; Do You Dip or Chew Tobacco: No; Hx Alcohol Use: No Hx Substance Use: No Preferred Language: Italian Communication Ability: Effective Grade Teacher Required: No Beliefs That Will Affect Care: None Current Living Situation: Spouse Feels Safe at Home: Yes Assistive Devices: Glasses and Hearing Aid - Right Allergies Allergies Allergy/AdvReac Type Severity Reaction Status Date / Time iodine Allergy Intermediate HIVES, RASH Verified 12/27/22 11:35 Home Meds Home Medications Medication Instructions Recorded Confirmed furosemide 20 mg tablet (Lasix) 20 mg PO QAM 06/06/20 12/27/22 metoprolol succinate 25 mg 25 mg PO BID 03/05/21 12/27/22 tablet,extended release 24 hr pantoprazole 20 mg tablet,delayed 20 mg PO DAILY 04/28/21 12/27/22 release atorvastatin 80 mg tablet 80 mg PO HS 07/07/21 12/27/22 aspirin 81 mg capsule 81 mg PO DAILY 09/23/21 12/27/22 tamsulosin 0.4 mg capsule 0.4 mg PO HS 09/22/22 12/27/22 carbidopa 25 mg-levodopa 100 mg See Rx Instructions .Route .COMPLEX 12/27/22 12/27/22 tablet Previous Rx's Medication Instructions Recorded finasteride 5 mg tablet 5 mg PO DAILY #30 tabs 09/08/21 Results & Data (ED) Vital Signs Vital Signs - 24 hr 12/27/22 07:27 12/27/22 08:09 12/27/22 08:01 Temperature 36.8 C Temperature Source Temporal Artery Scan Pulse Rate 81 71 Pulse Rate from SpO2 Sensor Respiratory Rate 19 Respiratory Rate [Exercises] Respiratory Effort / Characteristics Non-Labored Spontaneous Respiratory Depth Normal Blood Pressure 112/61 Blood Pressure Mean 78 Pulse Oximetry 96 Pulse Oximetry [Exercises] Oxygen Delivery Method Room Air Room Air Sepsis Recent Fever Within 48 Hours No Sepsis New/Unexplained Change in Mental Status No Sepsis Action Taken by Nursing No Action Required 12/27/22 07:46 12/27/22 08:04 12/27/22 08:04 Temperature Temperature Source Pulse Rate 72 71 Pulse Rate from SpO2 Sensor 72 Respiratory Rate 29 H 19 Respiratory Rate [Exercises] Respiratory Effort / Characteristics Respiratory Depth Blood Pressure 113/54 L Blood Pressure Mean 73 Pulse Oximetry 95 Pulse Oximetry [Exercises] Oxygen Delivery Method Room Air Sepsis Recent Fever Within 48 Hours Sepsis New/Unexplained Change in Mental Status Sepsis Action Taken by Nursing 12/27/22 08:30 12/27/22 08:30 12/27/22 09:00 Temperature Temperature Source Pulse Rate 68 Pulse Rate from SpO2 Sensor 68 Respiratory Rate 28 H Respiratory Rate [Exercises] Respiratory Effort / Characteristics Respiratory Depth Blood Pressure 119/59 L 121/63 Blood Pressure Mean 79 82 Pulse Oximetry 93 Pulse Oximetry [Exercises] Oxygen Delivery Method Room Air Sepsis Recent Fever Within 48 Hours Sepsis New/Unexplained Change in Mental Status Sepsis Action Taken by Nursing 12/27/22 09:00 12/27/22 09:30 12/27/22 09:30 Temperature Temperature Source Pulse Rate 72 70 Pulse Rate from SpO2 Sensor 75 70 Respiratory Rate 19 23 Respiratory Rate [Exercises] Respiratory Effort / Characteristics Respiratory Depth Blood Pressure 119/57 L Blood Pressure Mean 77 Pulse Oximetry 91 93 Pulse Oximetry [Exercises] Oxygen Delivery Method Room Air Room Air Sepsis Recent Fever Within 48 Hours Sepsis New/Unexplained Change in Mental Status Sepsis Action Taken by Nursing 12/27/22 10:00 12/27/22 10:00 12/27/22 10:30 Temperature Temperature Source Pulse Rate 68 68 Pulse Rate from SpO2 Sensor 69 69 Respiratory Rate 26 H 30 H Respiratory Rate [Exercises] Respiratory Effort / Characteristics Respiratory Depth Blood Pressure 120/60 Blood Pressure Mean 80 Pulse Oximetry 93 91 Pulse Oximetry [Exercises] Oxygen Delivery Method Room Air Room Air Sepsis Recent Fever Within 48 Hours Sepsis New/Unexplained Change in Mental Status Sepsis Action Taken by Nursing 12/27/22 10:31 12/27/22 10:31 12/27/22 11:00 Temperature Temperature Source Pulse Rate 69 Pulse Rate from SpO2 Sensor 69 Respiratory Rate 26 H Respiratory Rate [Exercises] Respiratory Effort / Characteristics Respiratory Depth Blood Pressure 118/60 122/64 Blood Pressure Mean 79 83 Pulse Oximetry 93 Pulse Oximetry [Exercises] Oxygen Delivery Method Room Air Sepsis Recent Fever Within 48 Hours Sepsis New/Unexplained Change in Mental Status Sepsis Action Taken by Nursing 12/27/22 11:00 12/27/22 11:30 12/27/22 11:30 Temperature Temperature Source Pulse Rate 68 68 Pulse Rate from SpO2 Sensor 68 68 Respiratory Rate 22 29 H Respiratory Rate [Exercises] Respiratory Effort / Characteristics Respiratory Depth Blood Pressure 126/63 Blood Pressure Mean 84 Pulse Oximetry 92 91 Pulse Oximetry [Exercises] Oxygen Delivery Method Room Air Room Air Sepsis Recent Fever Within 48 Hours Sepsis New/Unexplained Change in Mental Status Sepsis Action Taken by Nursing 12/27/22 12:00 12/27/22 13:30 12/27/22 12:49 Temperature Temperature Source Pulse Rate 77 67 70 Pulse Rate from SpO2 Sensor 78 70 Respiratory Rate 16 18 Respiratory Rate [Exercises] Respiratory Effort / Characteristics Respiratory Depth Blood Pressure Blood Pressure Mean Pulse Oximetry 90 89 L Pulse Oximetry [Exercises] Oxygen Delivery Method Room Air Sepsis Recent Fever Within 48 Hours Sepsis New/Unexplained Change in Mental Status Sepsis Action Taken by Nursing 12/27/22 13:00 12/27/22 13:00 12/27/22 13:30 Temperature Temperature Source Pulse Rate 67 Pulse Rate from SpO2 Sensor 69 Respiratory Rate 20 Respiratory Rate [Exercises] Respiratory Effort / Characteristics Respiratory Depth Blood Pressure 125/64 114/56 L Blood Pressure Mean 84 75 Pulse Oximetry 90 Pulse Oximetry [Exercises] Oxygen Delivery Method Sepsis Recent Fever Within 48 Hours Sepsis New/Unexplained Change in Mental Status Sepsis Action Taken by Nursing 12/27/22 13:30 12/27/22 14:00 12/27/22 14:00 Temperature Temperature Source Pulse Rate 66 67 Pulse Rate from SpO2 Sensor 66 67 Respiratory Rate 27 H 12 Respiratory Rate [Exercises] Respiratory Effort / Characteristics Respiratory Depth Blood Pressure 119/65 Blood Pressure Mean 83 Pulse Oximetry 89 L 90 Pulse Oximetry [Exercises] Oxygen Delivery Method Sepsis Recent Fever Within 48 Hours Sepsis New/Unexplained Change in Mental Status Sepsis Action Taken by Nursing 12/27/22 14:30 12/27/22 15:24 Temperature Temperature Source Pulse Rate 68 Pulse Rate from SpO2 Sensor 73 Respiratory Rate 23 Respiratory Rate [Exercises] 18 Respiratory Effort / Characteristics Respiratory Depth Blood Pressure Blood Pressure Mean Pulse Oximetry 90 Pulse Oximetry [Exercises] 88 L Oxygen Delivery Method Room Air Sepsis Recent Fever Within 48 Hours Sepsis New/Unexplained Change in Mental Status Sepsis Action Taken by Nursing Laboratory Data 12/27/22 08:15 12/27/22 08:15 Lab Results 12/27/22 12/27/22 12/27/22 Range/Units 08:15 08:15 08:15 WBC 6.14 (4.8-10.8) K/ul RBC 4.99 (4.70-6.10) M/uL Hgb 14.7 (14.0-18.0) g/dl Hct 43.1 (42.0-52.0) % MCV 86.4 (80.0-100.0) fL MCH 29.5 (25.0-34.0) pg MCHC 34.1 (32.0-36.0) g/dL RDW Std Deviation 46.5 H (36.4-46.3) fL RDW Coeff of Glenny 14.6 H (11.5-14.5) % Plt Count 92 L (130-400) K/uL MPV 11.0 (9.4-12.4) fL Immature Gran % (Auto) 0.3 % Neut % (Auto) 90.8 % Lymph % (Auto) 2.9 % Wells % (Auto) 5.5 % Eos % (Auto) 0.0 % Baso % (Auto) 0.5 % Neut # (Auto) 5.57 (1.40-6.50) K/uL Lymph # (Auto) 0.18 L (1.2-3.4) K/uL Wells # (Auto) 0.34 (0.11-0.59) K/uL Eos # (Auto) 0.00 (0-0.50) K/uL Baso # (Auto) 0.03 (0-0.2) K/uL Immature Gran # (Auto) 0.02 (0.01-0.20) K/uL Platelet Estimate Decreased L (Normal) Sodium 134 L (136-145) mmol/L Potassium 3.8 (3.5-5.1) mmol/L Chloride 101 (98-107) mmol/L Carbon Dioxide 24 (21-32) mmol/L Anion Gap 9 (3-11) BUN 32 H (6-23) mg/dl Creatinine 1.36 (0.6-1.4) mg/dl Est Cr Clr Drug Dosing Not Reportable Est GFR ( Amer) 56.2 ml/min Est GFR (Non-Af Amer) 48.5 ml/min BUN/Creatinine Ratio 23.5 H (10-20) Glucose 158 H (70-99(Fasting)) mg/dl Calcium 8.9 (8.6-10.3) mg/dl Magnesium 1.7 (1.7-2.4) mg/dl Total Bilirubin 1.7 H (0.2-1.0) mg/dl AST 19 (13-39) U/L ALT 9 (7-52) U/L Alkaline Phosphatase 56 (34-104) U/L Troponin I High Sens 14.1 (0-20) pg/ml Total Protein 6.5 (6.0-8.3) gm/dl Albumin 3.8 (3.4-5.0) gm/dl Globulin 2.7 (2.5-4.0) gm/dl Albumin/Globulin Ratio 1.4 (0.9-2) TSH 1.035 (0.300-4.500) uIu/ml SARS-CoV-2, RNA, NAAT (NEGATIVE) 12/27/22 Range/Units 08:15 WBC (4.8-10.8) K/ul RBC (4.70-6.10) M/uL Hgb (14.0-18.0) g/dl Hct (42.0-52.0) % MCV (80.0-100.0) fL MCH (25.0-34.0) pg MCHC (32.0-36.0) g/dL RDW Std Deviation (36.4-46.3) fL RDW Coeff of Glenny (11.5-14.5) % Plt Count (130-400) K/uL MPV (9.4-12.4) fL Immature Gran % (Auto) % Neut % (Auto) % Lymph % (Auto) % Wells % (Auto) % Eos % (Auto) % Baso % (Auto) % Neut # (Auto) (1.40-6.50) K/uL Lymph # (Auto) (1.2-3.4) K/uL Wells # (Auto) (0.11-0.59) K/uL Eos # (Auto) (0-0.50) K/uL Baso # (Auto) (0-0.2) K/uL Immature Gran # (Auto) (0.01-0.20) K/uL Platelet Estimate (Normal) Sodium (136-145) mmol/L Potassium (3.5-5.1) mmol/L Chloride (98-107) mmol/L Carbon Dioxide (21-32) mmol/L Anion Gap (3-11) BUN (6-23) mg/dl Creatinine (0.6-1.4) mg/dl Est Cr Clr Drug Dosing Est GFR ( Amer) ml/min Est GFR (Non-Af Amer) ml/min BUN/Creatinine Ratio (10-20) Glucose (70-99(Fasting)) mg/dl Calcium (8.6-10.3) mg/dl Magnesium (1.7-2.4) mg/dl Total Bilirubin (0.2-1.0) mg/dl AST (13-39) U/L ALT (7-52) U/L Alkaline Phosphatase (34-104) U/L Troponin I High Sens (0-20) pg/ml Total Protein (6.0-8.3) gm/dl Albumin (3.4-5.0) gm/dl Globulin (2.5-4.0) gm/dl Albumin/Globulin Ratio (0.9-2) TSH (0.300-4.500) uIu/ml SARS-CoV-2, RNA, NAAT NEGATIVE (NEGATIVE) Administered Medications Sodium Chloride (Nss 1000ml) 1,000 mls @ 125 mls/hr IV .Q8H RAMIRO Stop: 12/27/22 15:44 Last Infusion: 12/27/22 14:50 Dose: 0 mls/hr Documented By: Admin: 12/27/22 08:32 Dose: 125 mls/hr Documented By: TRAVIS Discontinued Medications Sodium Chloride (Nss) 500 mls @ 999 mls/hr IV .Q31M RAMIRO Stop: 12/27/22 08:15 Last Infusion: 12/27/22 09:17 Dose: 0 mls/hr Documented By: Admin: 12/27/22 08:32 Dose: 999 mls/hr Documented By: TRAVIS Ondansetron HCl (Ondansetron Inj 2 Mg/Ml 2 Ml Vial) 4 mg IV NOW STA Stop: 12/27/22 07:59 Last Admin: 12/27/22 08:31 Dose: 4 mg Documented By: TRAVIS Imaging Data Radiologist's Impression: Chest X-Ray 12/27/22 07:37 XR chest 1V portable CLINICAL HISTORY: weakness TECHNIQUE: Single frontal radiograph of the chest was obtained. Comparison: Comparison is made to chest radiograph 10/02/2019 FINDINGS: Median sternotomy wires are unchanged. Dual lead pacemaker is seen. Cardiomegaly is noted. The aortic arch is calcified. The lungs are clear. No evidence of pleural effusion or pneumothorax. IMPRESSION: No acute chest disease. Cardiomegaly is noted. ACT 112: Negative or not required by law. Electronically signed by: Ganga Chen M.D. 12/27/2022 8:20 AM Abdomen/Pelvis CT 12/27/22 12:11 CT SCAN OF THE ABDOMEN AND PELVIS WITHOUT IV CONTRAST CLINICAL HISTORY: Vomiting. Bilateral flank pain. Nausea. COMPARISON STUDY: Abdominal CT dated 10/07/2022. TECHNIQUE: CT scan of the abdomen and pelvis is performed from the lung bases to the proximal femora. Images are reviewed in the axial, sagittal, and coronal planes. IV contrast was not administered for this examination as per the referring clinician. Note that the examination was performed in suboptimal fashion without oral and IV contrast. A dose lowering technique was utilized adhering to the principles of ALARA. CT DOSE: 1029.04 mGy.cm FINDINGS: Lung bases: The patient is status post midline sternotomy. The heart is mildly enlarged and without pericardial effusion. A device is noted in the left atrial appendage. Pacemaker leads are in place. The coronary arteries are densely calcified. There are scattered calcified granulomas. The lung bases are otherwise clear noting bibasilar scarring/atelectasis. There is a small hiatal hernia. Liver: The unenhanced liver is normal in size, contour, and attenuation. There is no intrahepatic biliary ductal dilatation. A 1.5 cm cyst is seen in the left lobe. Gallbladder: Unremarkable. Spleen: Normal in size and attenuation. Pancreas: The unenhanced pancreas is moderately atrophic and grossly unremarkable. Adrenal glands: Unremarkable. Kidneys: The unenhanced kidneys demonstrate mild cortical atrophy and are without hydronephrosis. A punctate nonobstructing calculus as on the right. There are no left renal calculi and no ureteral stone is seen. A 2.8 cm cyst is noted on the left. Abdominal vasculature: The abdominal aorta is normal in course and caliber noting advanced atherosclerotic calcification. Bowel: There is no bowel obstruction. Moderate fecal retention is seen throughout the colon. The appendix is well-visualized and normal. Peritoneum: There is no intraperitoneal free air or abdominal ascites. Lymphadenopathy: None. Pelvic viscera: The prostate gland is enlarged and heterogeneous. The bladder is distended, and the wall is thickened/trabeculated indicating chronic outlet obst ruction. A tiny diverticulum is seen posteriorly on the right. Skeletal structures: The skeletal structures are osteopenic. There is moderate to advanced lumbosacral spondylosis and scoliosis. No lytic or blastic lesions are seen. IMPRESSION: 1. Suboptimal examination without oral and IV contrast. 2. No acute infectious or inflammatory findings are identified in the abdomen or pelvis 3. Cardiomegaly and cardiac pacemaker. 4. Punctate right-sided nephrolithiasis. 5. Additional chronic findings as above. ACT 112: Negative or not required by law. Electronically signed by: Shreyas Salgado M.D. 12/27/2022 2:00 PM Discharge Plan Visit Data Chief Complaint: Dehydration Stated Complaint: DEHYDRATION-WEAKNESS ED Provider: Guzman Sanchez Discharge Problem: Generalized weakness, Acute dehydration, Nausea & vomiting Forms Stand Alone Forms: My [facility] Report Prescriptions Prescriptions: No Action aspirin 81 mg capsule 81 mg PO DAILY pantoprazole 20 mg tablet,delayed release (DR/EC) 20 mg PO DAILY furosemide [Lasix] 20 mg tablet 20 mg PO QAM atorvastatin 80 mg tablet 80 mg PO HS metoprolol succinate 25 mg tablet extended release 24 hr 25 mg PO BID finasteride 5 mg tablet 5 mg PO DAILY Qty: 30 11RF tamsulosin 0.4 mg capsule 0.4 mg PO HS carbidopa-levodopa 25-100 mg tablet See Rx Instructions .ROUTE .COMPLEX Rx Instructions: Take 1 tablet by mouth in the morning, 0.5 tablet by mouth at dinnertime and 1 tablet by mouth at bedtime Referrals Referrals: Marques Khan [Primary Care Provider] -
[2022-12-27 09:06] LABS: Albumin Level 3.8 gm/dl (3.4-5.0); Anion Gap 9 (3-11); Bilirubin,Total 1.7 mg/dl (0.2-1.0); Calcium 8.9 mg/dl (8.6-10.3); Carbon Dioxide 24 mmol/L (21-32); Chloride 101 mmol/L (98-107); Magnesium 1.7 mg/dl (1.7-2.4); Potassium 3.8 mmol/L (3.5-5.1); Sodium 134 mmol/L (136-145)
[2022-12-27 09:12] LABS: Alanine Aminotransferase 9 U/L (7-52); Albumin Globulin Ratio 1.4 (0.9-2); Alkaline Phosphatase 56 U/L (34-104); Aspartate Aminotransferase 19 U/L (13-39); BUN Creatinine Ratio 23.5 (10-20); Basophils # (auto) 0.03 K/uL (0-0.2); Basophils % (auto) 0.5 %; Blood Urea Nitrogen 32 mg/dl (6-23); Est GFR (African American) 56.2 ml/min; Est GFR (Non-African American) 48.5 ml/min; Globulin 2.7 gm/dl (2.5-4.0); Glucose 158 mg/dl (70-99(Fasting)); Hematocrit (blood only) 43.1 % (42.0-52.0); Hemoglobin 14.7 g/dl (14.0-18.0); Immature Granulocytes # (auto) 0.02 K/uL (0.01-0.20); Immature Granulocytes % (auto) 0.3 %; Lymphocytes # (auto) 0.18 K/uL (1.2-3.4); Lymphocytes % (auto) 2.9 %; Mean Corpuscular Hemoglobin 29.5 pg (25.0-34.0); Mean Corpuscular Hgb Conc 34.1 g/dL (32.0-36.0); Mean Corpuscular Volume 86.4 fL (80.0-100.0); Monocytes # (auto) 0.34 K/uL (0.11-0.59); Monocytes % (auto) 5.5 %; Neutrophils # (auto) 5.57 K/uL (1.40-6.50); Neutrophils % (auto) 90.8 %; Platelet Count 92 K/uL (130-400); Platelet Estimate Decreased (Normal); RDW Coefficient of Variation 14.6 % (11.5-14.5); RDW Standard Deviation 46.5 fL (36.4-46.3); Red Blood Count 4.99 M/uL (4.70-6.10); Total Protein 6.5 gm/dl (6.0-8.3); White Blood Count 6.14 K/ul (4.8-10.8)
[2022-12-27 09:17] LABS: Troponin I High Sensitivity 14.1 pg/ml (0-20)
--- NOTE | 2022-12-27 14:01 | CT Scan Report ---
CT SCAN OF THE ABDOMEN AND PELVIS WITHOUT IV CONTRAST CLINICAL HISTORY: Vomiting. Bilateral flank pain. Nausea. COMPARISON STUDY: Abdominal CT dated 10/07/2022. TECHNIQUE: CT scan of the abdomen and pelvis is performed from the lung bases to the proximal femora. Images are reviewed in the axial, sagittal, and coronal planes. IV contrast was not administered for this examination as per the referring clinician. Note that the examination was performed in suboptim al fashion without oral and IV contrast. A dose lowering technique was utilized adhering to the princ iplferdinand of ANH. CT DOSE: 1029.04 mGy.cm FINDINGS: Lung bases: The patient is status post midline sternotomy. The heart is mildly enlarged and without p ericardial effusion. A device is noted in the left atrial appendage. Pacemaker leads are in place. Th e coronary arteries are densely calcified. There are scattered calcified granulomas. The lung bases a re otherwise clear noting bibasilar scarring/atelectasis. There is a small hiatal hernia. Liver: The unenhanced liver is normal in size, contour, and attenuation. There is no intrahepatic kesha iary ductal dilatation. A 1.5 cm cyst is seen in the left lobe. Gallbladder: Unremarkable. Spleen: Normal in size and attenuation. Pancreas: The unenhanced pancreas is moderately atrophic and grossly unremarkable. Adrenal glands: Unremarkable. Kidneys: The unenhanced kidneys demonstrate mild cortical atrophy and are without hydronephrosis. A p unctate nonobstructing calculus as on the right. There are no left renal calculi and no ureteral ston e is seen. A 2.8 cm cyst is noted on the left. Abdominal vasculature: The abdominal aorta is normal in course and caliber noting advanced atheroscle rotic calcification. Bowel: There is no bowel obstruction. Moderate fecal retention is seen throughout the colon. The appe ndix is well-visualized and normal. Peritoneum: There is no intraperitoneal free air or abdominal ascites. Lymphadenopathy: None. Pelvic viscera: The prostate gland is enlarged and heterogeneous. The bladder is distended, and the w all is thickened/trabeculated indicating chronic outlet obstruction. A tiny diverticulum is seen post eriorly on the right. Skeletal structures: The skeletal structures are osteopenic. There is moderate to advanced lumbosacra l spondylosis and scoliosis. No lytic or blastic lesions are seen. IMPRESSION: 1. Suboptimal examination without oral and IV contrast. 2. No acute infectious or inflammatory findings are identified in the abdomen or pelvis 3. Cardiomegaly and cardiac pacemaker. 4. Punctate right-sided nephrolithiasis. 5. Additional chronic findings as above. ACT 112: Negative or not required by law. Electronically signed by: Shreyas Salgado M.D. 12/27/2022 2:00 PM
[2022-12-27] MEDS ORDERED: FAMOTIDINE 20MG IV PUSH 20 MG/5 ML SYR IV STA (15:33)
[2022-12-27] MEDS ORDERED: methylPREDNISolone 125 MG/2 ML VIAL IV STA (15:33)
[2022-12-27] MEDS ORDERED: diphenhydrAMINE 50 MG/ML VIAL IV STA (15:33)
--- NOTE | 2022-12-27 16:16 | History & Physical Report ---
Date of Service December 27, 2022 Assessment & Plan (1) Generalized weakness: Plan: Suspect from dehydration from working outside. Observe overnight. PT /OT in AM. Reportedly better after fluid resuscitation in the ER. If sitll present in AM consider workup for tick borne diseases (2) Hypoxia: Plan: No definitive cause. CT for PE without pulmonary embolus ?due to IV fluids given in ER causing b/l pleural effusions vs diphenhydramine causing reduced inspiratory effort. Avoid further fluids. (3) Nausea & vomiting: Plan: Now resolved. Monitor. No abdominal pain. No findings on CT A/P (4) BPH (benign prostatic hyperplasia): Plan: Continue tamsulosin (5) Hypertension: Plan: Continue his routine medications Furosemide on hold until BMP returns in AM (6) GERD (gastroesophageal reflux disease): Plan: Continue pantoprazole Plan VTE Prophylaxis - given lack of acute etiology will defer chemical prophylaxis on admission Diet - regular Disposition - observation to med/surg Admission and Anticipated Discharge Date Admission Date: December 27, 2022 History of Present Illness Chief Complaint: Generalized weakness and hypoxia Primary Care Provider: Marques Khan Stew Baker is an 82 year old male who presents to the ER with generalized weakness. The patient is very hard of hearing and does not have his hearing aids therefore history obtained from his at bedside. She reports he is doing better after IV fluids given in the ER. She notes 2 days of nausea, reduced oral intake and he has been working out in the garden in the sun and she doesn't think he got enough to drink. After fluid hydration in the ER he was feeling better and plan was initially to discharge home however then he became mild hypoxic to the mid 80s therefore was referred to medicine for admission and ongoing management. No recent cough, nasal congestion, sinus pain, fever, chills, shortness of breath. Allergies Allergy/AdvReac Type Severity Reaction Status Date / Time iodine Allergy Intermediate HIVES, RASH Verified 12/27/22 11:35 Home Medications Medication Instructions Recorded Confirmed Type furosemide 20 mg tablet (Lasix) 20 mg PO QAM 06/06/20 12/27/22 History metoprolol succinate 25 mg 25 mg PO BID 03/05/21 12/27/22 History tablet,extended release 24 hr pantoprazole 20 mg tablet,delayed 20 mg PO DAILY 04/28/21 12/27/22 History release atorvastatin 80 mg tablet 80 mg PO HS 07/07/21 12/27/22 History finasteride 5 mg tablet 5 mg PO DAILY #30 tabs 09/08/21 12/27/22 Rx aspirin 81 mg capsule 81 mg PO DAILY 09/23/21 12/27/22 History tamsulosin 0.4 mg capsule 0.4 mg PO HS 09/22/22 12/27/22 History carbidopa 25 mg-levodopa 100 mg See Rx Instructions .Route .COMPLEX 12/27/22 12/27/22 History tablet Past Med/Surg History Medical History (Updated 12/28/22 @ 07:04 by Feliberto Biswas MD) Arrhythmia Arthritis Benign prostatic hyperplasia with urinary obstruction CAD (coronary artery disease) Stent x 2 - 2016 GERD (gastroesophageal reflux disease) Hypertension Pacemaker Surgical History History of aortic aneurysm repair 2000 History of permanent cardiac pacemaker placement Family History Other No significant family history Social History Smoking Status: Never smoker Second Hand Exposure: No; Do You Dip or Chew Tobacco: No; Hx Alcohol Use: No Hx Substance Use: No Preferred Language: Burmese Communication Ability: Effective Relief Driller Required: No Beliefs That Will Affect Care: None Current Living Situation: Spouse Current Living Situation Comment: 1 story house Feels Safe at Home: Yes Assistive Devices: Glasses and Hearing Aid - Right Review of Systems Review of Systems: All systems reviewed & are unremarkable except as noted in HPI & below Physical Exam Constitutional: WD/WN, vitals as above Eyes: PERRL, conjunctivae normal, anicteric sclerae ENMT: external ear and nose normal, oropharynx normal Respiratory: normal respiratory effort, lungs clear to auscultation Cardiovascular: RRR, no murmur, no edema Heart Sounds: + murmur Vessels: no JVD Gastrointestinal (Abdomen): normal bowel sounds, soft, nontender, no hepatosplenomegaly Skin: no rashes, warm and dry Neurologic: moves all extremities and awake; no focal motor deficits (no unilateral weakness) and not confused Speech / Cognition: normal speech Motor/Sensory: no tremor and no pronator drift Cranial Nerves: PERRL, EOM intact bilaterally, normal facial strength, tongue midline, able to rotate head bilaterally, able to elevate shoulders bilaterally, no nystagmus and symmetric palate elevation Psychiatric: Orientation: alert; + not oriented x 3 (unable to assess due to hearing loss) Genitourinary: no CVA tenderness Results & Data Results & Data Vital Signs (Past 12 Hours) Vital Signs Temp Pulse Resp Resp BP Pulse Ox Pulse Ox 12/27/22 15:24 18 88 L 12/27/22 14:30 68 23 90 12/27/22 14:00 67 12 90 12/27/22 14:00 119/65 12/27/22 13:30 66 27 H 89 L 12/27/22 13:30 114/56 L 12/27/22 13:00 67 20 90 12/27/22 13:00 125/64 12/27/22 12:49 70 18 89 L 12/27/22 13:30 67 12/27/22 12:00 77 16 90 12/27/22 11:30 68 29 H 91 12/27/22 11:30 126/63 12/27/22 11:00 68 22 92 12/27/22 11:00 122/64 12/27/22 10:31 118/60 12/27/22 10:31 69 26 H 93 12/27/22 10:30 68 30 H 91 12/27/22 10:00 68 26 H 93 12/27/22 10:00 120/60 12/27/22 09:30 70 23 93 12/27/22 09:30 119/57 L 12/27/22 09:00 72 19 91 12/27/22 09:00 121/63 12/27/22 08:30 68 28 H 93 12/27/22 08:30 119/59 L 12/27/22 08:04 113/54 L 12/27/22 08:04 71 19 12/27/22 07:46 72 29 H 95 12/27/22 08:01 12/27/22 08:09 71 12/27/22 07:27 36.8 C 81 19 112/61 96 O2 Del Method 12/27/22 15:24 Room Air 12/27/22 14:30 12/27/22 14:00 12/27/22 14:00 12/27/22 13:30 12/27/22 13:30 12/27/22 13:00 12/27/22 13:00 12/27/22 12:49 12/27/22 13:30 12/27/22 12:00 Room Air 12/27/22 11:30 Room Air 12/27/22 11:30 12/27/22 11:00 Room Air 12/27/22 11:00 12/27/22 10:31 12/27/22 10:31 Room Air 12/27/22 10:30 Room Air 12/27/22 10:00 Room Air 12/27/22 10:00 12/27/22 09:30 Room Air 12/27/22 09:30 12/27/22 09:00 Room Air 12/27/22 09:00 12/27/22 08:30 Room Air 12/27/22 08:30 12/27/22 08:04 12/27/22 08:04 12/27/22 07:46 Room Air 12/27/22 08:01 Room Air 12/27/22 08:09 12/27/22 07:27 Room Air Laboratory Results Abnormal lab results 12/27/22 12/27/22 Range/Units 08:15 08:15 RDW Std Deviation 46.5 H (36.4-46.3) fL RDW Coeff of Glenny 14.6 H (11.5-14.5) % Plt Count 92 L (130-400) K/uL Lymph # (Auto) 0.18 L (1.2-3.4) K/uL Platelet Estimate Decreased L (Normal) Sodium 134 L (136-145) mmol/L BUN 32 H (6-23) mg/dl BUN/Creatinine Ratio 23.5 H (10-20) Glucose 158 H (70-99(Fasting)) mg/dl Total Bilirubin 1.7 H (0.2-1.0) mg/dl Diagnostic Findings CT ANGIOGRAM OF THE CHEST CLINICAL HISTORY: Hypoxia. COMPARISON STUDY: Chest x-ray dated 12/27/2022. TECHNIQUE: Following the IV administration of 110 cc of Optiray 320, CT angiogram of the chest was performed from the upper abdomen to the thoracic inlet utilizing the pulmonary embolus protocol. Images are reviewed in the axial, sagittal, and coronal planes. 3-D MIPS images are created and assessed. IV contrast was administered without complication. A dose lowering technique was utilized adhering to the principles of ALARA. The examination is degraded by motion artifact. CT DOSE: 875.42 mGy.cm FINDINGS: Thyroid: Imaged portions of the thyroid gland are normal in size and attenuation. Thoracic aorta: There is atherosclerotic calcification of the thoracic aorta, which is normal in caliber and demonstrates standard 3-vessel arch anatomy. No dissection is seen. Pulmonary vasculature: The pulmonary trunk is normal in caliber. There are no filling defects identified in main, lobar, or segmental pulmonary branches to suggest pulmonary embolus. Heart: The patient is status post midline sternotomy. A cardiac pacemaker is present in the left chest wall. The heart is enlarged and without pericardial effusion. A device is noted within the left atrial appendage. The coronary arteries are densely calcified. Lungs and pleural spaces: Evaluation of the lung parenchyma is degraded by motion artifact. The trachea and central airways are clear. There are trace pleural effusions. No airspace consolidation is seen typical for pneumonia. There is bibasilar scarring/atelectasis. Numerous calcified granulomas are observed. Mediastinum: There is no mediastinal lymphadenopathy. Jossy: There are calcified bilateral hilar lymph nodes. No hilar adenopathy is seen. Axillae: There is no axillary lymphadenopathy. Upper abdomen: There is a small hiatal hernia. Trace perisplenic ascites is noted. Scattered hepatic cysts measure up to 1.4 cm there Skeletal structures: The skeletal structures are osteopenic. Degenerative change and hyperkyphosis is noted in the thoracic spine. No lytic or blastic bony lesions are seen. IMPRESSION: 1. Motion degraded examination. 2. There is no evidence of pulmonary embolus in the main, lobar, or segmental pulmonary arteries. 3. Cardiomegaly and cardiac pacemaker. 4. Trace pleural effusions. 5. Trace perisplenic ascites. 6. Additional findings as above. CT SCAN OF THE ABDOMEN AND PELVIS WITHOUT IV CONTRAST CLINICAL HISTORY: Vomiting. Bilateral flank pain. Nausea. COMPARISON STUDY: Abdominal CT dated 10/07/2022. TECHNIQUE: CT scan of the abdomen and pelvis is performed from the lung bases to the proximal femora. Images are reviewed in the axial, sagittal, and coronal planes. IV contrast was not administered for this examination as per the referring clinician. Note that the examination was performed in suboptimal fashion without oral and IV contrast. A dose lowering technique was utilized adhering to the principles of ALARA. CT DOSE: 1029.04 mGy.cm FINDINGS: Lung bases: The patient is status post midline sternotomy. The heart is mildly enlarged and without pericardial effusion. A device is noted in the left atrial appendage. Pacemaker leads are in place. The coronary arteries are densely calcified. There are scattered calcified granulomas. The lung bases are other jackson clear noting bibasilar scarring/atelectasis. There is a small hiatal hernia. Liver: The unenhanced liver is normal in size, contour, and attenuation. There is no intrahepatic biliary ductal dilatation. A 1.5 cm cyst is seen in the left lobe. Gallbladder: Unremarkable. Spleen: Normal in size and attenuation. Pancreas: The unenhanced pancreas is moderately atrophic and grossly unremarkable. Adrenal glands: Unremarkable. Kidneys: The unenhanced kidneys demonstrate mild cortical atrophy and are without hydronephrosis. A punctate nonobstructing calculus as on the right. There are no left renal calculi and no ureteral stone is seen. A 2.8 cm cyst is noted on the left. Abdominal vasculature: The abdominal aorta is normal in course and caliber noting advanced atherosclerotic calcification. Bowel: There is no bowel obstruction. Moderate fecal retention is seen throughout the colon. The appendix is well-visualized and normal. Peritoneum: There is no intraperitoneal free air or abdominal ascites. Lymphadenopathy: None. Pelvic viscera: The prostate gland is enlarged and heterogeneous. The bladder is distended, and the wall is thickened/trabeculated indicating chronic outlet obstruction. A tiny diverticulum is seen posteriorly on the right. Skeletal structures: The skeletal structures are osteopenic. There is moderate to advanced lumbosacral spondylosis and scoliosis. No lytic or blastic lesions are seen. IMPRESSION: 1. Suboptimal examination without oral and IV contrast. 2. No acute infectious or inflammatory findings are identified in the abdomen or pelvis 3. Cardiomegaly and cardiac pacemaker. 4. Punctate right-sided nephrolithiasis. 5. Additional chronic findings as above. XR chest 1V portable CLINICAL HISTORY: weakness TECHNIQUE: Single frontal radiograph of the chest was obtained. Comparison: Comparison is made to chest radiograph 10/02/2019 FINDINGS: Median sternotomy wires are unchanged. Dual lead pacemaker is seen. Cardiomegaly is noted. The aortic arch is calcified. The lungs are clear. No evidence of pleural effusion or pneumothorax. IMPRESSION: No acute chest disease. Cardiomegaly is noted. Medications Administered ER Medications Given: NSS 500ml bolus NSS @ 125 ml/hr Solu-medrol 125mg IV Famotidine 20mg IV Diphenhydramine 12.5mg IV ECG Rate (beats per minute): 73 Findings: + paced rhythm (atrial sensed, ventricular paced rhythm) Comparison ECG Date: from (October 02, 2019) Change: no significant change Code Status & VTE Plan Code Status Full VTE Prophylaxis Plan VTE Prophylaxis will be ordered: No PG Care Time/CCT Total # of Minutes Spent Total Time Spent with Patient: Total time spent is greater than 50% in coordination of care (as documented) at patient's floor/unit and/or counseling patient: Coding Level of Care Code 52423 INT INP/OBS CARE 2/55MIN Diagnoses Generalized weakness R53.1 Hypoxia R09.02 Nausea & vomiting R11.2 BPH (benign prostatic hyperplasia) N40.0 Hypertension I10 Hypertension type: essential hypertension GERD (gastroesophageal reflux disease) K21.9 Esophagitis presence: esophagitis presence not specified (5) Hypertension Hypertension type: essential hypertension Qualified Code(s): I10 - Essential (primary) hypertension (6) GERD (gastroesophageal reflux disease) Esophagitis presence: esophagitis presence not specified Qualified Code(s): K21.9 - Gastro-esophageal reflux disease without esophagitis
[2022-12-27] MEDS ORDERED: OPTIRAY 320 500ml IV ONE (16:20)
[2022-12-27 16:36] LABS: Adenovirus PCR Not Detected (NotDetected); Bordetella parapertussis PCR Not Detected (NotDetected); Bordetella pertussis PCR Not Detected (NotDetected); Chlamydia pneumoniae PCR Not Detected (NotDetected); Coronavirus 229E PCR Not Detected (NotDetected); Coronavirus CoV-2 (COVID19)PCR Not Detected (NotDetected); Coronavirus HKU1 PCR Not Detected (NotDetected); Coronavirus NL63 PCR Not Detected (NotDetected); Coronavirus OC43PCR Not Detected (NotDetected); Human Metapneumovirus PCR Not Detected (NotDetected); Influenza A PCR Not Detected (NotDetected); Influenza B PCR Not Detected (NotDetected); Mycoplasma pneumoniae PCR Not Detected (NotDetected); Parainfluenza Virus 1 PCR Not Detected (NotDetected); Parainfluenza Virus 2 PCR Not Detected (NotDetected); Parainfluenza Virus 3 PCR Not Detected (NotDetected); Parainfluenza Virus 4 PCR Not Detected (NotDetected); Respiratory Syncytial VirusPCR Not Detected (NotDetected); Rhinovirus/Enterovirus PCR Not Detected (NotDetected)
--- NOTE | 2022-12-27 16:38 | CT Scan Report ---
CT ANGIOGRAM OF THE CHEST CLINICAL HISTORY: Hypoxia. COMPARISON STUDY: Chest x-ray dated 12/27/2022. TECHNIQUE: Following the IV administration of 110 cc of Optiray 320, CT angiogram of the chest was pe rformed from the upper abdomen to the thoracic inlet utilizing the pulmonary embolus protocol. Images are reviewed in the axial, sagittal, and coronal planes. 3-D MIPS images are created and assessed. I V contrast was administered without complication. A dose lowering technique was utilized adhering to the principles of ALARA. The examination is degraded by motion artifact. CT DOSE: 875.42 mGy.cm FINDINGS: Thyroid: Imaged portions of the thyroid gland are normal in size and attenuation. Thoracic aorta: There is atherosclerotic calcification of the thoracic aorta, which is normal in jonatan ritika and demonstrates standard 3-vessel arch anatomy. No dissection is seen. Pulmonary vasculature: The pulmonary trunk is normal in caliber. There are no filling defects identif ied in main, lobar, or segmental pulmonary branches to suggest pulmonary embolus. Heart: The patient is status post midline sternotomy. A cardiac pacemaker is present in the left ches t wall. The heart is enlarged and without pericardial effusion. A device is noted within the left atr ial appendage. The coronary arteries are densely calcified. Lungs and pleural spaces: Evaluation of the lung parenchyma is degraded by motion artifact. The trach ea and central airways are clear. There are trace pleural effusions. No airspace consolidation is see n typical for pneumonia. There is bibasilar scarring/atelectasis. Numerous calcified granulomas are o bserved. Mediastinum: There is no mediastinal lymphadenopathy. Jossy: There are calcified bilateral hilar lymph nodes. No hilar adenopathy is seen. Axillae: There is no axillary lymphadenopathy. Upper abdomen: There is a small hiatal hernia. Trace perisplenic ascites is noted. Scattered hepatic cysts measure up to 1.4 cm there Skeletal structures: The skeletal structures are osteopenic. Degenerative change and hyperkyphosis is noted in the thoracic spine. No lytic or blastic bony lesions are seen. IMPRESSION: 1. Motion degraded examination. 2. There is no evidence of pulmonary embolus in the main, lobar, or segmental pulmonary arteries. 3. Cardiomegaly and cardiac pacemaker. 4. Trace pleural effusions. 5. Trace perisplenic ascites. 6. Additional findings as above. ACT 112: Negative or not required by law. Electronically signed by: Shreyas Salgado M.D. 12/27/2022 4:36 PM
[2022-12-27] MEDS ORDERED: ONDANSETRON INJ 2 MG/ML 2 ML VIAL IV PRN (18:43)
[2022-12-27] MEDS ORDERED: ACETAMINOPHEN 325 MG TAB PO PRN (18:43)
[2022-12-27] MEDS: ATORVASTATIN 40 MG TAB PO SCH (21:46)
[2022-12-27] MEDS: METOPROLOL SUCC 25MG EXT REL TAB PO SCH (21:46)
[2022-12-27] MEDS: TAMSULOSIN HCL 0.4 MG CAP PO SCH (21:47)
[2022-12-27] MEDS: CARBIDOPA/LEVODOPA 25/100MG TAB PO SCH ×2 (21:47→21:48)
[2022-12-28] MEDS ORDERED: LACTATED RINGER'S 1,000 ML IV SCH (01:00)
--- NOTE | 2022-12-28 08:06 | Discharge Summary ---
Date of Service December 28, 2022 Admission HPI Per Admitting Provider Stew Baker is an 82 year old male who presents to the ER with generalized weakness. The patient is very hard of hearing and does not have his hearing aids therefore history obtained from his at bedside. She reports he is doing better after IV fluids given in the ER. She notes 2 days of nausea, reduced oral intake and he has been working out in the garden in the sun and she doesn't think he got enough to drink. After fluid hydration in the ER he was feeling better and plan was initially to discharge home however then he became mild hypoxic to the mid 80s therefore was referred to medicine for admission and ongoing management. No recent cough, nasal congestion, sinus pain, fever, chills, shortness of breath. Admission Exam Per Admitting Provider Physical Exam Constitutional: WD/WN, vitals as above Eyes: PERRL, conjunctivae normal, anicteric sclerae ENMT: external ear and nose normal, oropharynx normal Respiratory: normal respiratory effort, lungs clear to auscultation Cardiovascular: RRR, no murmur, no edema Heart Sounds: + murmur Vessels: no JVD Gastrointestinal (Abdomen): normal bowel sounds, soft, nontender, no hepatosplenomegaly Skin: no rashes, warm and dry Neurologic: moves all extremities and awake; no focal motor deficits (no unilateral weakness) and not confused Speech / Cognition: normal speech Motor/Sensory: no tremor and no pronator drift Cranial Nerves: PERRL, EOM intact bilaterally, normal facial strength, tongue midline, able to rotate head bilaterally, able to elevate shoulders bilaterally, no nystagmus and symmetric palate elevation Psychiatric: Orientation: alert; + not oriented x 3 (unable to assess due to hearing loss) Genitourinary: no CVA tenderness Discharge Exam Appearance: lying supine in bed, NAD Respiratory: no conversational dyspnea, lungs CTA BL Cardio: normal S1, S2, regular rate, no M/R/G, no JVD MSK: no focal pain to palpation of spinous processes; strength 5/5 with hip flexion, foot dorsiflexion/plantarflexion; ROM intact for hip flexion Abd: normal bowel sounds, no organomegaly, no pain/rebound/guarding to palpation Neuro: difficulty hearing, CN2-12 intact Lymphatics: no LE edema bilaterally Skin: no rashes Discharge Data Allergies Allergy/AdvReac Type Severity Reaction Status Date / Time iodine Allergy Intermediate HIVES, RASH Verified 12/27/22 11:35 Ordered Studies 12/27/22 12:11 CT abd pelvis wo con Stat 12/27/22 15:19 CT angio chest PE protocol Stat Hospital Course (1) Generalized weakness: (2) Nausea & vomiting: (3) Hypoxia: (4) GERD (gastroesophageal reflux disease): (5) Hypertension: (6) BPH (benign prostatic hyperplasia): (7) Essential tremor: (8) CAD (coronary artery disease): (9) Back pain: Divya Mathias is an 82 y/o M with PMHx of tachy-kathy syndrome with pacemaker, CAD s/p 2 stents, and thoracic aortic aneurysm repair who presented in the ED with generalized weakness, nausea, and vomiting x1 who was found to be hypoxic (88% on SpO2). #Generalized weakness Improved after fluid resuscitation in the ER (1.5L normal saline) Suspect dehydration, BUN/Cr ratio >20 Hemodynamically stable BioFire negative PT/OT #Nausea, vomiting 1 episode of vomiting Resolved with rehydration and Zofran #Hypoxia O2 sat down to 88%, on 2L nasal cannula Chest CTA,CT abd/pelvis, and CXR did not show acute pathology including PE #Back pain, chronic Acetaminophen 650 mg PO q4hr PRN No red flag symptoms, benign exam, chronic in nature, stable #Coronary artery disease #History of thoracic aortic aneurysm repair #History of tachy-kathy syndrome S/p stents x2 Biventricular pacemaker ASA 81m metoprolol 25mg PO BID Former patient of Dr. Baez, follows with another filament shaper in [place] now #Benign prostatic hyperplasia Tamsulosin 0.4mg PO qHS Finasteride 5mg PO #Hypertension Continue home medications Furosemide 20mg, BMP with stable kidney function #Gastroesophageal reflux disease Pantoprazole 20mg delayed release #Essential tremor Follows with [facility] neurology Sinemet 25/100 1 tab PO BID FENGI: regular diet Full code Discharge Plan Discharge Items Reason For Visit: GENERALIZED WEAKNESS, HYPOXIA Follow-up/Referrals: Marques Khan [Primary Care Provider] - Medications and DC Order Prescriptions: No Action aspirin 81 mg capsule 81 mg PO DAILY pantoprazole 20 mg tablet,delayed release (DR/EC) 20 mg PO DAILY furosemide [Lasix] 20 mg tablet 20 mg PO QAM atorvastatin 80 mg tablet 80 mg PO HS metoprolol succinate 25 mg tablet extended release 24 hr 25 mg PO BID finasteride 5 mg tablet 5 mg PO DAILY Qty: 30 11RF tamsulosin 0.4 mg capsule 0.4 mg PO HS carbidopa-levodopa 25-100 mg tablet See Rx Instructions .ROUTE .COMPLEX Rx Instructions: Take 1 tablet by mouth in the morning, 0.5 tablet by mouth at dinnertime and 1 tablet by mouth at bedtime Admission Data Admit Date/Time: 12/27/22 17:34 Attending Provider: Ever Ace Admit Provider: Feliberto Biswas Primary Care Provider: Marques Khan
[2022-12-28] MEDS: FINASTERIDE 5 MG TAB PO SCH (08:27)
[2022-12-28] MEDS: ASPIRIN 81 MG ECTAB PO SCH (08:27)
[2022-12-28] MEDS: CARBIDOPA/LEVODOPA 25/100MG TAB PO SCH ×3 (08:27→20:12)
[2022-12-28] MEDS: PANTOprazole 40 MG TAB PO SCH (08:27)
[2022-12-28] MEDS: METOPROLOL SUCC 25MG EXT REL TAB PO SCH ×2 (08:27→20:13)
[2022-12-28] MEDS: FUROSEMIDE 20 MG TAB PO SCH (08:27)
[2022-12-28 08:47] LABS: Basophils # (auto) 0.01 K/uL (0-0.2); Basophils % (auto) 0.1 %; Echinocytes 1+; Hemoglobin 15.6 g/dl (14.0-18.0); Immature Granulocytes # (auto) 0.02 K/uL (0.01-0.20); Immature Granulocytes % (auto) 0.3 %; Lymphocytes # (auto) 0.35 K/uL (1.2-3.4); Lymphocytes % (auto) 5.1 %; Mean Corpuscular Hemoglobin 29.2 pg (25.0-34.0); Mean Corpuscular Hgb Conc 33.2 g/dL (32.0-36.0); Mean Corpuscular Volume 87.9 fL (80.0-100.0); Mean Platelet Volume 11.2 fL (9.4-12.4); Monocytes # (auto) 0.17 K/uL (0.11-0.59); Monocytes % (auto) 2.5 %; Neutrophils # (auto) 6.34 K/uL (1.40-6.50); Platelet Count 80 K/uL (130-400); Platelet Estimate Decreased (Normal); RDW Coefficient of Variation 14.7 % (11.5-14.5); RDW Standard Deviation 47.1 fL (36.4-46.3); Red Blood Count 5.35 M/uL (4.70-6.10); Tear Drop Cells 1+; White Blood Count 6.89 K/ul (4.8-10.8)
[2022-12-28 08:53] LABS: Albumin Globulin Ratio 1.2 (0.9-2); Albumin Level 3.8 gm/dl (3.4-5.0); BUN Creatinine Ratio 33.3 (10-20); Bilirubin,Total 1.4 mg/dl (0.2-1.0); Creatinine Clr Calc Pharmacy 54.3 ml/min; Est GFR (African American) 67.4 ml/min; Est GFR (Non-African American) 58.1 ml/min; Globulin 3.1 gm/dl (2.5-4.0); Potassium 4.6 mmol/L (3.5-5.1); Total Protein 6.9 gm/dl (6.0-8.3)
[2022-12-28] MEDS: LIDOCAINE 5% 1 PATCH TD SCH (09:28)
[2022-12-28 14:21] LABS: Appearance Urine Cloudy (Clear); Bacteria Urine Automated Negative (Negative); Bilirubin Urine Negative (Negative); Blood Urine 1+ (Negative); Color Urine Dark Yellow; Epithelial Cell Urine Auto >30 /lpf (0-5); Glucose Urine UA Negative (Negative); Ketones Urine Negative (Negative); Leukocyte Esterase Urine Negative (Negative); Nitrite Urine Negative (Negative); Protein Urine 2+ (Negative); RBC Urine Automated 0-4 /hpf (0-4); Specific Gravity Urine 1.036 (1.000-1.030); Urobilinogen Urine Negative (Negative); pH Urine 5.5 (4.5-7.5)
--- NOTE | 2022-12-28 14:26 | Hospitalist Progress Note ---
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 #Anaplasmosis, Lyme disease +Anaplasma smear with +Lyme IgM Received 1 dose of doxycycline 12/28/22, will start BID on 12/29/22. Symptomatic improvement after fluid resuscitation in ED Hemodynamically stable #Hypoxia O2 sat down to 88%, on 2L nasal cannula Saturations down to 68% with walker Chest CTA,CT abd/pelvis, and CXR did not show acute pathology including PE Echocardiogram 12/28/22: LVEF 55-60%, abnormal septal motion consistent with conduction abnormality #Back pain, chronic Acetaminophen 650 mg PO q4hr PRN No red flag symptoms, benign exam, chronic in nature, stable X-ray 02/23/21 with [facility]: lumbar levoscoliosis, multilevel degeneration of lumbar spine (L2-L3, L3-L4, L4-L5, L5-S1)) #Coronary artery disease Atorvastatin 80 mg po qhs S/p stents x2 (2002, 2016) #History of thoracic aortic aneurysm repair 2000 #History of tachy-kathy syndrome Biventricular pacemaker ASA 81m metoprolol 25mg PO BID Former patient of Dr. Baez, follows with another engine generator assembler in [place] currently #Benign prostatic hyperplasia Tamsulosin 0.4mg PO qHS Finasteride 5mg PO #Hypertension Continue home medications Furosemide 20mg, BMP with stable kidney function #Gastroesophageal reflux disease Pantoprazole 20mg delayed release #Essential tremor Follows with [facility] neurology Sinemet 25/100 1 tab PO BID FENGI: regular diet DVT ppx: heparin q12 Full code OT recommends home health and walker; 6-click Admission and Anticipated Discharge Date Admission Date: December 27, 2022 Supervising Physician Co-Signing Physician Notes I personally examined the patient and verified all taylor points of history and exam, discussed case, and agree with decision making with Mandeep Burdick MS4 and Dr Araiza Feeling better. presentupdated to the best my ability and to their satisfaction. He does not feel short of breath, but desaturates off of oxygen. Vitals noted, in general he is awake and alert pleasant no distress. HEENT normocephalic atraumatic mucous membranes moist. Breathing unlabored no accessory muscle use good effort, but he does desaturate off of oxygen. Weakness/malaiseseems to be dehydration and Lyme/Anaplasmarehydrated, and start doxycycline. Hypoxiapossibly mild pulmonary edemabut given that he came in dehydrated, I would hesitate to kevan that with a diuretic. Rather we will give his body time to equilibrate. Unfortunately right now he still needing supplemental oxygenfollow into tomorrow. Otherwise as above Subjective Stew is lying supine in his bed. Over the weekend he was physically active with projects in his garage and had decreased PO intake. 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 Yesterday he had a single episode of nonbloody, nonbilious vomiting which did not recur. No fevers, chills, diarrhea. He has chronic back pain which sounds radicular in nature. Currently 6/10, worse with movement, radiates down both legs. Able to urinate without dysuria although his urine is dark. He reports SOB with exertion. No cough or sputum production. No chest pain, abdominal distention or lower extremity swelling. He sleeps flat in a bed with 2 pillows which hasn't changed recently. Salt intake does seem elevated. Review of Systems Review of Systems: All systems reviewed & are unremarkable except as noted in HPI & below Physical Exam Physical Exam: Appearance: lying supine in bed, NAD Respiratory: no conversational dyspnea, lungs CTA BL Cardio: normal S1, S2, regular rate, no M/R/G, no JVD MSK: no focal pain to palpation of spinous processes; strength 5/5 with hip flexion, foot dorsiflexion/plantarflexion; ROM intact for hip flexion Abd: normal bowel sounds, no organomegaly, no pain/rebound/guarding to palpation Neuro: difficulty hearing, otherwise CN2-12 intact Lymphatics: no LE edema bilaterally Skin: no rashes Results & Data Results & Data Vital Signs (Past 12 Hours) Vital Signs Temp Pulse Resp BP Pulse Ox O2 Del Method O2 Flow Rate 12/28/22 07:51 Nasal Cannula 2 12/28/22 07:37 36.8 C 67 18 114/65 95 Nasal Cannula 2 Laboratory Results Laboratory Results WBC 6.89 K/ul (4.8-10.8) 12/28/22 07:29 RBC 5.35 M/uL (4.70-6.10) 12/28/22 07:29 Hgb 15.6 g/dl (14.0-18.0) 12/28/22 07:29 Hct 47.0 % (42.0-52.0) 12/28/22 07:29 MCV 87.9 fL (80.0-100.0) 12/28/22 07:29 MCH 29.2 pg (25.0-34.0) 12/28/22 07:29 MCHC 33.2 g/dL (32.0-36.0) 12/28/22 07:29 RDW Std Deviation 47.1 fL (36.4-46.3) H 12/28/22 07:29 RDW Coeff of Glenny 14.7 % (11.5-14.5) H 12/28/22 07:29 Plt Count 80 K/uL (130-400) L 12/28/22 07:29 MPV 11.2 fL (9.4-12.4) 12/28/22 07:29 Immature Gran % (Auto) 0.3 % 12/28/22 07:29 Neut % (Auto) 92.0 % 12/28/22 07:29 Lymph % (Auto) 5.1 % 12/28/22 07:29 Mckinley % (Auto) 2.5 % 12/28/22 07:29 Eos % (Auto) 0.0 % 12/28/22 07:29 Baso % (Auto) 0.1 % 12/28/22 07:29 Neut # (Auto) 6.34 K/uL (1.40-6.50) 12/28/22 07:29 Lymph # (Auto) 0.35 K/uL (1.2-3.4) L 12/28/22 07:29 Mckinley # (Auto) 0.17 K/uL (0.11-0.59) 12/28/22 07:29 Eos # (Auto) 0.00 K/uL (0-0.50) 12/28/22 07:29 Baso # (Auto) 0.01 K/uL (0-0.2) 12/28/22 07:29 Immature Gran # (Auto) 0.02 K/uL (0.01-0.20) 12/28/22 07:29 Platelet Estimate Decreased (Normal) L 12/28/22 07:29 Tear Drop Cells 1+ 12/28/22 07:29 Echinocytes 1+ 12/28/22 07:29 Sodium 140 mmol/L (136-145) 12/28/22 07:29 Potassium 4.6 mmol/L (3.5-5.1) D 12/28/22 07:29 Chloride 104 mmol/L (98-107) 12/28/22 07:29 Carbon Dioxide 26 mmol/L (21-32) 12/28/22 07:29 Anion Gap 10 (3-11) 12/28/22 07:29 BUN 39 mg/dl (6-23) H 12/28/22 07:29 Creatinine 1.17 mg/dl (0.6-1.4) 12/28/22 07:29 Est Cr Clr Drug Dosing 54.3 ml/min 12/28/22 07:29 Est GFR ( Amer) 67.4 ml/min 12/28/22 07:29 Est GFR (Non-Af Amer) 58.1 ml/min 12/28/22 07:29 BUN/Creatinine Ratio 33.3 (10-20) H 12/28/22 07:29 Glucose 153 mg/dl (70-99(Fasting)) H 12/28/22 07:29 Calcium 9.0 mg/dl (8.6-10.3) 12/28/22 07:29 Magnesium 1.7 mg/dl (1.7-2.4) 12/27/22 08:15 Total Bilirubin 1.4 mg/dl (0.2-1.0) H 12/28/22 07:29 AST 32 U/L (13-39) 12/28/22 07:29 ALT 8 U/L (7-52) 12/28/22 07:29 Alkaline Phosphatase 52 U/L (34-104) 12/28/22 07:29 Troponin I High Sens 14.1 pg/ml (0-20) 12/27/22 08:15 Total Protein 6.9 gm/dl (6.0-8.3) 12/28/22 07:29 Albumin 3.8 gm/dl (3.4-5.0) 12/28/22 07:29 Globulin 3.1 gm/dl (2.5-4.0) 12/28/22 07:29 Albumin/Globulin Ratio 1.2 (0.9-2) 12/28/22 07: TSH 1.035 uIu/ml (0.300-4.500) 12/27/22 08:15 Adenovirus (PCR) Not Detected (NotDetected) 12/27/22 15:20 B. pertussis DNA (PCR) Not Detected (NotDetected) 12/27/22 15:20 B.parapertussis DNA PCR Not Detected (NotDetected) 12/27/22 15:20 C. pneumoniae DNA (PCR) Not Detected (NotDetected) 12/27/22 15:20 Coronavirus OC43 (PCR) Not Detected (NotDetected) 12/27/22 15:20 Coronavirus HKU1 (PCR) Not Detected (NotDetected) 12/27/22 15:20 Coronavirus 229E (PCR) Not Detected (NotDetected) 12/27/22 15:20 SARS-CoV-2 (PCR) Not Detected (NotDetected) 12/27/22 15:20 Coronavirus NL63 (PCR) Not Detected (NotDetected) 12/27/22 15:20 Human Metapneumovir PCR Not Detected (NotDetected) 12/27/22 15:20 Influenza Type A (PCR) Not Detected (NotDetected) 12/27/22 15:20 Influenza Type B (PCR) Not Detected (NotDetected) 12/27/22 15:20 M. pneumoniae (PCR) Not Detected (NotDetected) 12/27/22 15:20 Parainfluenza 1 (PCR) Not Detected (NotDetected) 12/27/22 15:20 Parainfluenza 2 (PCR) Not Detected (NotDetected) 12/27/22 15:20 Parainfluenza 3 (PCR) Not Detected (NotDetected) 12/27/22 15:20 Parainfluenza 4 (PCR) Not Detected (NotDetected) 12/27/22 15:20 RSV (PCR) Not Detected (NotDetected) 12/27/22 15:20 Entero/Rhino (PCR) Not Detected (NotDetected) 12/27/22 15:20 SARS-CoV-2, RNA, NAAT NEGATIVE (NEGATIVE) 12/27/22 08:15 Impressions Chest X-Ray 12/27/22 07:37 XR chest 1V portable CLINICAL HISTORY: weakness TECHNIQUE: Single frontal radiograph of the chest was obtained. Comparison: Comparison is made to chest radiograph 10/02/2019 FINDINGS: Median sternotomy wires are unchanged. Dual lead pacemaker is seen. Cardiomegaly is noted. The aortic arch is calcified. The lungs are clear. No evidence of pleural effusion or pneumothorax. IMPRESSION: No acute chest disease. Cardiomegaly is noted. ACT 112: Negative or not required by law. Electronically signed by: Ganga Chen M.D. 12/27/2022 8:20 AM Abdomen/Pelvis CT 12/27/22 12:11 CT SCAN OF THE ABDOMEN AND PELVIS WITHOUT IV CONTRAST CLINICAL HISTORY: Vomiting. Bilateral flank pain. Nausea. COMPARISON STUDY: Abdominal CT dated 10/07/2022. TECHNIQUE: CT scan of the abdomen and pelvis is performed from the lung bases to the proximal femora. Images are reviewed in the axial, sagittal, and coronal planes. IV contrast was not administered for this examination as per the referring clinician. Note that the examination was performed in suboptimal fashion without oral and IV contrast. A dose lowering technique was utilized adhering to the principles of ALARA. CT DOSE: 1029.04 mGy.cm FINDINGS: Lung bases: The patient is status post midline sternotomy. The heart is mildly enlarged and without pericardial effusion. A device is noted in the left atrial appendage. Pacemaker leads are in place. The coronary arteries are densely calcified. There are scattered calcified granulomas. The lung bases are otherwise clear noting bibasilar scarring/atelectasis. There is a small hiatal hernia. Liver: The unenhanced liver is normal in size, contour, and attenuation. There is no intrahepatic biliary ductal dilatation. A 1.5 cm cyst is seen in the left lobe. Gallbladder: Unremarkable. Spleen: Normal in size and attenuation. Pancreas: The unenhanced pancreas is moderately atrophic and grossly unremarkable. Adrenal glands: Unremarkable. Kidneys: The unenhanced kidneys demonstrate mild cortical atrophy and are without hydronephrosis. A punctate nonobstructing calculus as on the right. There are no left renal calculi and no ureteral stone is seen. A 2.8 cm cyst is noted on the left. Abdominal vasculature: The abdominal aorta is normal in course and caliber noting advanced atherosclerotic calcification. Bowel: There is no bowel obstruction. Moderate fecal retention is seen throughout the colon. The appendix is well-visualized and normal. Peritoneum: There is no intraperitoneal free air or abdominal ascites. Lymphadenopathy: None. Pelvic viscera: The prostate gland is enlarged and heterogeneous. The bladder is distended, and the wall is thickened/trabeculated indicating chronic outlet obstruction. A tiny diverticulum is seen posteriorly on the right. Skeletal structures: The skeletal structures are osteopenic. There is moderate t o advanced lumbosacral spondylosis and scoliosis. No lytic or blastic lesions are seen. IMPRESSION: 1. Suboptimal examination without oral and IV contrast. 2. No acute infectious or inflammatory findings are identified in the abdomen or pelvis 3. Cardiomegaly and cardiac pacemaker. 4. Punctate right-sided nephrolithiasis. 5. Additional chronic findings as above. ACT 112: Negative or not required by law. Electronically signed by: Shreyas Salgado M.D. 12/27/2022 2:00 PM Chest CTA 12/27/22 15:19 CT ANGIOGRAM OF THE CHEST CLINICAL HISTORY: Hypoxia. COMPARISON STUDY: Chest x-ray dated 12/27/2022. TECHNIQUE: Following the IV administration of 110 cc of Optiray 320, CT angiogram of the chest was performed from the upper abdomen to the thoracic inlet utilizing the pulmonary embolus protocol. Images are reviewed in the axial, sagittal, and coronal planes. 3-D MIPS images are created and assessed. IV contrast was administered without complication. A dose lowering technique was utilized adhering to the principles of ALARA. The examination is degraded by motion artifact. CT DOSE: 875.42 mGy.cm FINDINGS: Thyroid: Imaged portions of the thyroid gland are normal in size and attenuation. Thoracic aorta: There is atherosclerotic calcification of the thoracic aorta, which is normal in caliber and demonstrates standard 3-vessel arch anatomy. No dissection is seen. Pulmonary vasculature: The pulmonary trunk is normal in caliber. There are no filling defects identified in main, lobar, or segmental pulmonary branches to suggest pulmonary embolus. Heart: The patient is status post midline sternotomy. A cardiac pacemaker is present in the left chest wall. The heart is enlarged and without pericardial effusion. A device is noted within the left atrial appendage. The coronary arteries are densely calcified. Lungs and pleural spaces: Evaluation of the lung parenchyma is degraded by motion artifact. The trachea and central airways are clear. There are trace pleural effusions. No airspace consolidation is seen typical for pneumonia. There is bibasilar scarring/atelectasis. Numerous calcified granulomas are observed. Mediastinum: There is no mediastinal lymphadenopathy. Jossy: There are calcified bilateral hilar lymph nodes. No hilar adenopathy is seen. Axillae: There is no axillary lymphadenopathy. Upper abdomen: There is a small hiatal hernia. Trace perisplenic ascites is noted. Scattered hepatic cysts measure up to 1.4 cm there Skeletal structures: The skeletal structures are osteopenic. Degenerative change and hyperkyphosis is noted in the thoracic spine. No lytic or blastic bony lesions are seen. IMPRESSION: 1. Motion degraded examination. 2. There is no evidence of pulmonary embolus in the main, lobar, or segmental pulmonary arteries. 3. Cardiomegaly and cardiac pacemaker. 4. Trace pleural effusions. 5. Trace perisplenic ascites. 6. Additional findings as above. ACT 112: Negative or not required by law. Electronically signed by: Shreyas Salgado M.D. 12/27/2022 4:36 PM (5) GERD (gastroesophageal reflux disease) Esophagitis presence: esophagitis presence not specified Qualified Code(s): K21.9 - Gastro-esophageal reflux disease without esophagitis (6) Hypertension Hypertension type: essential hypertension Qualified Code(s): I10 - Essential (primary) hypertension (9) CAD (coronary artery disease) Associated angina: angina presence unspecified Coronary Disease-Associated Artery/Lesion type: [place] artery [place] vs. transplanted heart: [place] heart Qualified Code(s): I25.10 - Atherosclerotic heart disease of [place] coronary artery without angina pectoris
[2022-12-28 16:15] LABS: Anaplasmosis Smear(Rpt to DOH) Pos for Anaplasma; Lyme Ab IgG w/WB Rflx Positive (Negative); Lyme Ab IgM w/WB Rflx Positive (Negative)
[2022-12-28] MEDS ORDERED: DOXYCYCLINE HYCLATE 100 MG CAP PO STA (16:22)
--- NOTE | 2022-12-28 16:46 | XCELERA ---
[id number]
--- NOTE | 2022-12-28 19:41 | Billing Data ---
Date of Service December 28, 2022 Coding Level of Care Code 13979 SUB INP/OBS CARE MIN
[2022-12-28] MEDS: TAMSULOSIN HCL 0.4 MG CAP PO SCH (20:12)
[2022-12-28] MEDS: HEPARIN SOD 5,000 UNIT/0.5 ML VIAL SQ SCH (20:12)
[2022-12-28] MEDS: ATORVASTATIN 40 MG TAB PO SCH (20:12)
[2022-12-28] MEDS ORDERED: DOXYCYCLINE HYCLATE 100 MG CAP PO SCH (21:00)
--- NOTE | 2022-12-29 05:19 | Electrocardiogram Report ---
Test Reason : Blood Pressure : / mmHG Vent. Rate : 073 BPM Atrial Rate : 073 BPM P-R Int : 176 ms QRS Dur : 166 ms QT Int : 484 ms P-R-T Axes : 039 -42 105 degrees QTc Int : 533 ms Atrial-sensed ventricular-paced rhythm Biventricular pacemaker detected Abnormal ECG When compared with ECG of 02-OCT-2019 02:28, Vent. rate has decreased BY 7 BPM Confirmed by Aydin Chavez ([id number]) on 12/29/2022 5:19:27 AM Referred By: REFERRED SELF Confirmed By:Aydin Chavez
[2022-12-29] MEDS: FINASTERIDE 5 MG TAB PO SCH (08:09)
[2022-12-29] MEDS: PANTOprazole 40 MG TAB PO SCH (08:09)
[2022-12-29] MEDS: METOPROLOL SUCC 25MG EXT REL TAB PO SCH (08:09)
[2022-12-29] MEDS: FUROSEMIDE 20 MG TAB PO SCH (08:10)
[2022-12-29] MEDS: ASPIRIN 81 MG ECTAB PO SCH (08:10)
[2022-12-29] MEDS: CARBIDOPA/LEVODOPA 25/100MG TAB PO SCH (08:11)
[2022-12-29] MEDS: LIDOCAINE 5% 1 PATCH TD SCH (08:11)
[2022-12-29] MEDS: HEPARIN SOD 5,000 UNIT/0.5 ML VIAL SQ SCH (08:18)
[2022-12-29] MEDS ORDERED: DOXYCYCLINE HYCLATE 100 MG CAP PO SCH (09:00)
[2022-12-29 09:52] LABS: Hematocrit (blood only) 42.3 % (42.0-52.0); Hemoglobin 14.3 g/dl (14.0-18.0); Mean Corpuscular Hemoglobin 29.1 pg (25.0-34.0); Mean Corpuscular Hgb Conc 33.8 g/dL (32.0-36.0); Mean Platelet Volume 11.5 fL (9.4-12.4); Platelet Count 63 K/uL (130-400); RDW Coefficient of Variation 14.6 % (11.5-14.5); RDW Standard Deviation 46.5 fL (36.4-46.3); Red Blood Count 4.92 M/uL (4.70-6.10); White Blood Count 5.21 K/ul (4.8-10.8)
[2022-12-29 10:03] LABS: Albumin Globulin Ratio 1.1 (0.9-2); Albumin Level 3.2 gm/dl (3.4-5.0); Calcium 8.4 mg/dl (8.6-10.3); Creatinine Clr Calc Pharmacy 55.8 ml/min; Est GFR (African American) 69.5 ml/min; Globulin 2.9 gm/dl (2.5-4.0); Potassium 3.9 mmol/L (3.5-5.1); Total Protein 6.1 gm/dl (6.0-8.3)
[2022-12-29 10:11] LABS: Basophils # (auto) 0.01 K/uL (0-0.2); Basophils % (auto) 0.2 %; Immature Granulocytes # (auto) 0.02 K/uL (0.01-0.20); Immature Granulocytes % (auto) 0.4 %; Lymphocytes # (auto) 0.21 K/uL (1.2-3.4); Monocytes # (auto) 0.22 K/uL (0.11-0.59); Monocytes % (auto) 4.2 %; Neutrophils # (auto) 4.75 K/uL (1.40-6.50); Neutrophils % (auto) 91.2 %; RBC Morphology Unremarkable
--- NOTE | 2022-12-29 15:49 | Discharge Summary ---
Date of Service December 29, 2022 Admission HPI Per Admitting Provider Stew Baker is an 82 year old male who presents to the ER with generalized weakness. The patient is very hard of hearing and does not have his hearing aids therefore history obtained from his at bedside. She reports he is doing better after IV fluids given in the ER. She notes 2 days of nausea, reduced oral intake and he has been working out in the garden in the sun and she doesn't think he got enough to drink. After fluid hydration in the ER he was feeling better and plan was initially to discharge home however then he became mild hypoxic to the mid 80s therefore was referred to medicine for admission and ongoing management. No recent cough, nasal congestion, sinus pain, fever, chills, shortness of breath. Admission Exam Per Admitting Provider Constitutional: WD/WN, vitals as above Eyes: PERRL, conjunctivae normal, anicteric sclerae ENMT: external ear and nose normal, oropharynx normal Respiratory: normal respiratory effort, lungs clear to auscultation Cardiovascular: RRR, no murmur, no edema Heart Sounds: + murmur Vessels: no JVD Gastrointestinal (Abdomen): normal bowel sounds, soft, nontender, no hepatosplenomegaly Skin: no rashes, warm and dry Neurologic: moves all extremities and awake; no focal motor deficits (no unilateral weakness) and not confused Speech / Cognition: normal speech Motor/Sensory: no tremor and no pronator drift Cranial Nerves: PERRL, EOM intact bilaterally, normal facial strength, tongue midline, able to rotate head bilaterally, able to elevate shoulders bilaterally, no nystagmus and symmetric palate elevation Psychiatric: Orientation: alert; + not oriented x 3 (unable to assess due to hearing loss) Genitourinary: no CVA tenderness Principal Diagnosis Anaplasmosis Discharge Exam Constitutional WD/WN, vitals as above Eyes PERRL, conjunctivae normal, anicteric sclerae ENMT external ear and nose normal, oropharynx normal Neck trachea midline, no thyromegaly Respiratory normal respiratory effort, lungs clear to auscultation Cardiovascular Rate/Rhythm: regular rate and regular rhythm Gastrointestinal (Abdomen) Inspection/Auscultation: abdomen normal to inspection Percussion/Palpation: abdomen soft; abdomen nontender Skin no rashes, warm and dry Discharge Data Allergies Allergy/AdvReac Type Severity Reaction Status Date / Time iodine Allergy Intermediate HIVES, RASH Verified 12/27/22 11:35 Ordered Studies 12/27/22 12:11 CT abd pelvis wo con Stat 12/27/22 15:19 CT angio chest PE protocol Stat Hospital Course (1) Anaplasmosis: Stew is an 82 y/o M with PMHx of tachy-kathy syndrome with pacemaker, CAD s/p 2 stents (2002, 2016), and thoracic aortic aneurysm repair (2000) who presented in the ED with 2 days of generalized weakness, nausea, and vomiting found to have anaplasmosis and lyme disease #Anaplasmosis, Lyme disease +Anaplasma smear with +Lyme IgM Symptomatic improvement after fluid resuscitation in ED Started on Doxycycline 100mg BID for 10 days #Hypoxia O2 sat on admit 88% on RA after receiving 1.5L IVF Chest CTA,CT abd/pelvis, and CXR showed trace pleural effusion Echocardiogram 12/28/22: LVEF 55-60%, abnormal septal motion consistent with conduction abnormality Saturations down to 68% on RA with walker 12/28/22, improved on discharge #Back pain, chronic Acetaminophen, lidocaine patch PRN No red flag symptoms, benign exam, chronic in nature, stable X-ray 02/23/21 with [facility]: lumbar levoscoliosis, multilevel degeneration of lumbar spine (L2-L3, L3-L4, L4-L5, L5-S1)) #History of tachy-kathy syndrome Biventricular pacemaker ASA 81mg daily, metoprolol 25mg PO BID Former patient of Dr. Baez, follows with another industrial editor in [place] currently #Benign prostatic hyperplasia Tamsulosin 0.4mg PO qHS Finasteride 5mg PO daily #Hypertension Continue home medications Furosemide 20mg daily #Gastroesophageal reflux disease Pantoprazole 20mg daily delayed release #Essential tremor Follows with [facility] neurology Sinemet 25/100 1 tab PO BID (2) Thrombocytopenia: (3) Generalized weakness: Total Time Total Time Spent Total Time Spent (In Minutes): <30 Discharge Plan Discharge Items Patient Disposition: Home - Home Health Services Reason For Visit: GENERALIZED WEAKNESS, HYPOXIA Discharge Diagnosis: Lyme disease, Anaplasmosis Activity: Resume your previous activity Non-emergency contact: Primary Care Provider Call non-emergency contact if: you have any medication questions, your symptoms worsen and you have a fever Follow-up/Referrals: Marques Khan [Primary Care Provider] - Diet: Heart Healthy Add Attending Provider Instructions: You were admitted to the hospital for weakness. You were found to have Lyme disease and Anaplasmosis, and were treated with antibiotics. You also received IV fluids in the hospital and became slightly fluid overloaded, which decreased your oxygen saturation slightly. This has resolved by today. You had a good response to lidocaine patches for your back pain. Consider using lidocaine 4% patches at home. Remember to change the patches daily, do not place over an open wound. A discharge summary will be sent to your primary care physician to ensure continuity of care. Please bring this discharge summary with you to your next office appointment so that your provider can review it at that time. Follow-up appointments: Make a follow-up appointment with your PCP within the next week. It is very important that you follow up with them shortly after discharge from the hospital. Keep all your follow-up appointments as already scheduled. If you cannot make an appointment, notify your provider. Medications: Your medication list has been reviewed and reconciled upon discharge to ensure accuracy and continuity of care. An updated list of all your medications is included with your hospital discharge paperwork. Please review this list closely, and make note of any changes. * We sent a new medication called Doxycycline to your pharmacy. Take Doxycycline 100mg one tablet twice a day for 10 days. Take your medications as instructed; do not skip a dose of your medicines. Make sure all of your doctors know every medicine you are taking (including rxoi-thy-jupyjmv medicines, vitamins, and supplements). Call your primary care provider before taking any new medicines (including wvpm-fnd-naovymx medicines, vitamins, and supplements), because some of these may interact with your current medications, or may make your symptoms worse. Tell your primary care provider if you cannot afford your medications. CONTACT YOUR PRIMARY CARE PROVIDER if you experience any of the following: Fever, chills, weakness Difficulty breathing Difficulty following your treatment plan, or difficulty taking medications CALL 911 OR GO TO THE EMERGENCY DEPARTMENT if you experience any of the following: Sudden, severe abdominal pain or nausea/vomiting Severe chest pain, or chest pain that radiates (moves) to your jaw or arm Sudden, severe shortness of breath or difficulty breathing Thank you for allowing us to participate in your care. Pending Studies at Discharge: Yes Studies:: Tick panel Stand-Alone Forms: My TreatFeed, Smoking Cessation Medications and DC Order Prescriptions: New doxycycline hyclate 100 mg Capsule 100 mg PO BID 10 Days Qty: 19 0RF Rx Instructions: Please take first dose this evening. Please remember to use sunscreen while on this medication. Continued aspirin 81 mg capsule 81 mg PO DAILY pantoprazole 20 mg tablet,delayed release (DR/EC) 20 mg PO DAILY furosemide [Lasix] 20 mg tablet 20 mg PO QAM atorvastatin 80 mg tablet 80 mg PO HS metoprolol succinate 25 mg tablet extended release 24 hr 25 mg PO BID finasteride 5 mg tablet 5 mg PO DAILY Qty: 30 11RF tamsulosin 0.4 mg capsule 0.4 mg PO HS carbidopa-levodopa 25-100 mg tablet See Rx Instructions .ROUTE .COMPLEX Rx Instructions: Take 1 tablet by mouth in the morning, 0.5 tablet by mouth at dinnertime and 1 tablet by mouth at bedtime Krames/Other Patient Handouts: ED Lyme Disease Admission Data Admit Date/Time: 12/27/22 17:34 Attending Provider: Ever Ace Admit Provider: Feliberto Biswas Primary Care Provider: Marques Khan Other Interventions: Discharge Summary Assessment (RN) Last Done: 12/29/22 15:40 Supervising Physician Co-Signing Physician Notes I personally examined the patient and verified all taylor points of history and exam, discussed case, and agree with decision making with Dr Araiza Feeling better. No shortness of breath. Took off his oxygen and he was 98% on room air whenever I left the room. He would like to go home today.. Vitals noted, in general he is awake and alert pleasant no distress. HEENT normocephalic atraumatic mucous membranes moist. Breathing unlabored no accessory muscle use good effort, and overall clear without rales rhonchi or wheezes. Weakness/malaiseseems to be dehydration and Lyme/Anaplasmarehydrated, and treating with doxycycline. Hypoxiapossibly mild pulmonary edemabut given that he came in dehydrated, I was hesitate to kevan that with a diureticfortunately with time he equilibrated and is now off of oxygen doing well. Otherwise as above Resident Activity Tracking Resident Involvement: Resident Care Provided Care Provided: Adult [facility] Medicine
--- NOTE | 2022-12-29 17:18 | Billing Data ---
Date of Service December 29, 2022 Coding Level of Care Code 87976 IN/OBS DISCH 30 MIN/LESS
[2023-01-01 02:53] LABS: 18KDIGG Band REACTIVE; 23KDIGG Band REACTIVE; 23KDIGM Band REACTIVE; 28KDIGG Band NON-REACTIVE; 30KDIGG Band NON-REACTIVE; 39KDIGG Band REACTIVE; 39KDIGM Band NON-REACTIVE; 41KDIGG Band REACTIVE; 41KDIGM Band NON-REACTIVE; 45KDIGG Band NON-REACTIVE; 58KDIGG Band REACTIVE; 66KDIGG Band REACTIVE; 93KDIGG Band NON-REACTIVE; Lyme Antibodies, WB IgG POSITIVE (NEGATIVE); Lyme Antibodies, WB IgM NEGATIVE (NEGATIVE)
[2023-01-01 10:52] LABS: Babesia microti DNA Not Detected (Not Detected)
[2023-01-01 12:08] LABS: Ehrlichia chaff DNA Bld Negative (Negative)
== END 2022-12-29 16:18 | disposition home health service (06) ==
LOC: 3N 07:21 → ED 07:21 → SUATTDRO 17:34 → 3N 18:18